=== PATIENT | male | born 1955 | race Caucasian/White ===

== ENCOUNTER 2020-01-17 06:01 | Inpatient (IN) | payer OTHER ==
[2020-01-17] MEDS ORDERED: SODIUM CHLORIDE 0.9% 1,000 ML IV ONE (06:19)
[2020-01-17 06:35] LABS: Basophils % (A) 1 %; Eosinophils # (A) 0.2 k/uL (0-0.7); Eosinophils % (A) 3 %; HCT 51.5 % (39.0-53.0); HGB 16.3 gm/dL (13.0-17.5); Lymphocytes # (A) 2.1 k/uL (1.0-4.8); Lymphocytes % (A) 27 %; MCH 29.2 pg (25.0-35.0); MCHC 31.6 g/dL (31.0-37.0); MCV 92.3 fL (80.0-100.0); Monocytes # (A) 0.6 k/uL (0-1.0); Monocytes % (A) 7 %; Neutrophils # (A) 4.7 k/uL (1.3-7.7); Neutrophils % (A) 60 %; Platelet Count 245 k/uL (150-450); RBC 5.58 m/uL (4.30-5.90); RDW 12.9 % (11.5-15.5); WBC 7.8 k/uL (3.8-10.6)
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
[2020-01-17 06:47] LABS: ALT 23 U/L (4-49); AST 27 U/L (17-59); African American GFR (CKD) 88 (>60 ml/min/1.73 sqM); Albumin 4.6 g/dL (3.5-5.0); Alcohol <10 mg/dL; Alkaline Phosphatase 58 U/L (38-126); Anion Gap 10 mmol/L; Blood Urea Nitrogen 21 mg/dL (9-20); Calcium 9.5 mg/dL (8.4-10.2); Carbon Dioxide 24 mmol/L (22-30); Chloride 104 mmol/L (98-107); Glucose 92 mg/dL (74-99); Non-African American GFR(CKD) 76 (>60 ml/min/1.73 sqM); Sodium 138 mmol/L (137-145); Total Bilirubin 0.7 mg/dL (0.2-1.3); Total Protein 7.5 g/dL (6.3-8.2)
[2020-01-17 06:54] LABS: Appearance,Urine Clear (Clear); Bilirubin,Urine Negative (Negative); Blood,Urine Negative (Negative); Color,Urine Yellow; Glucose,Urine (UA) Negative (Negative); Ketones,Urine Negative (Negative); Leukocyte Esterase,Urine Negative (Negative); Nitrite,Urine Negative (Negative); Protein,Urine Negative (Negative); Specific Gravity,Urine 1.019 (1.001-1.035); Urobilinogen,Urine <2.0 mg/dL (<2.0)
[2020-01-17 06:58] LABS: Prothrombin Time 9.9 sec (9.0-12.0)
--- NOTE | 2020-01-17 06:58 | CT ---
EXAM: CT Head Without Intravenous Contrast CLINICAL HISTORY: Altered mental status TECHNIQUE: Axial computed tomography images of the head/brain without intravenous contrast. CTDI is 50 mGy and DLP is 1099 mGy-cm. This CT exam was performed using one or more of the following dose reduction techniques: automated exposure control, adjustment of the mA and/or kV according to patient size, and/or use of iterative reconstruction technique. COMPARISON: None. FINDINGS: Brain: No acute intracranial hemorrhage. No CT evidence of acute infarct. No mass effect or midline shift. Slight asymmetrical high density in the right middle cerebral artery on the axial images. Chronic microangiopathic white matter disease and generalized involutional changes. Ventricles: Unremarkable. No ventriculomegaly. Bones/joints: Unremarkable. No acute fracture. Soft tissues: Unremarkable. Sinuses: Unremarkable as visualized. Mastoid air cells: Unremarkable as visualized. No mastoid effusion. IMPRESSION: No acute intracranial hemorrhage or CT evidence of acute infarct. Slight asymmetrical high density in the right MCA on axial images, may represent sequela of atherosclerotic disease and motion artifact. Correlate with clinical findings. Correlate with clinical findings such as dense left hemiparesis to exclude less likely possibility of thrombus. Age-related changes. <MYCVCSECTION> Communications: 01/17/20 06:59 Call Doctor Regarding Above results, called Dr. Griffith on 01/16 07:00 (-04:00)
[2020-01-17 07:06] LABS: Amphetamine Screen,Urine Not Detected (NotDetected); Barbiturate Screen,Urine Not Detected (NotDetected); Benzodiazepines Screen,Urine Detected (NotDetected); Cocaine Screen,Urine Not Detected (NotDetected); Methadone Screen, Urine Not Detected (NotDetected); Opiate Screen,Urine Detected (NotDetected); Oxycodone Screen, Urine Not Detected (NotDetected); Phencyclidine Screen,Urine Not Detected (NotDetected); Tricyclic Antidepressant,Urine Not Detected (NotDetected); Urn Cannabinoid Scrn Not Detected (NotDetected)
[2020-01-17] MEDS ORDERED: RX INFO: IV CONTRAST WAS GIVEN 1 EACH MISC MISCELLANE PRN (07:47)
--- NOTE | 2020-01-17 08:53 | CT ---
EXAMINATION TYPE: CT brain w con DATE OF EXAM: 01/17/2020 COMPARISON: Previous study dated 01/17/2020 HISTORY: Confusion CT DLP: 1154.4 mGycm Automated exposure control for dose reduction was used. CONTRAST: CT scan of the head is performed with IV Contrast, patient injected with 100 ml mL of Isovue 300. FINDINGS: Central structures are midline. There is no evidence of hydrocephalus. No acute focal lesion, mass ef fect or midline shift is seen. I do not see evidence of intracranial blood. There is symmetric blood flow to both cerebral hemispheres. There is normal arborization of the middl e cerebral arteries. Both anterior cerebral arteries are patent. The posterior circulation appears un remarkable. IMPRESSION: 1. NO EVIDENCE OF THROMBUS OR OCCLUSION OF THE RIGHT MCA AT THIS TIME. 2. NO ACUTE INTRACRANIAL ABNORMALITY.
[2020-01-17] MEDS ORDERED: NALOXONE 0.4 MG/ML 1 ML VIAL IV PRN (10:01)
[2020-01-17 12:07] LABS: Glucose,Whole Blood 72 mg/dL (75-99)
[2020-01-17] MEDS ORDERED: LORazepam 0.5 MG TAB PO PRN (15:59)
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
[2020-01-17] MEDS: THIAMINE 100 MG in SODIUM CHLORIDE 0.9% 50 ML IVPB SCH ×2 (16:57→19:54)
[2020-01-17 17:05] LABS: Glucose,Whole Blood 111 mg/dL (75-99)
[2020-01-17] MEDS: FAMOTIDINE 20 MG/2 ML VIAL IV SCH (19:54)
[2020-01-17] MEDS: HEPARIN SODIUM,PORCINE 5,000 UNIT/ML 1 ML VIAL SQ SCH (19:54)
[2020-01-17 21:53] LABS: Glucose,Whole Blood 88 mg/dL (75-99)
[2020-01-18 07:15] LABS: Glucose,Whole Blood 100 mg/dL (75-99)
[2020-01-18] MEDS: HEPARIN SODIUM,PORCINE 5,000 UNIT/ML 1 ML VIAL SQ SCH ×2 (08:27→21:48)
[2020-01-18] MEDS: FAMOTIDINE 20 MG/2 ML VIAL IV SCH ×2 (08:27→21:50)
[2020-01-18] MEDS: THIAMINE 100 MG in SODIUM CHLORIDE 0.9% 50 ML IVPB SCH ×2 (08:29→21:48)
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
--- NOTE | 2020-01-18 11:00 | ECHOF ---
Referral Reason:Periods of unresponsiveness MEASUREMENTS -------- HEIGHT: 170.2 cm WEIGHT: 87.1 kg BP: 175/90 RVIDd: 3.7 cm (< 3.3) IVSd: 1.6 cm (0.6 - 1.1) LVIDd: 3.8 cm (3.9 - 5.3) LVPWd: 1.4 cm (0.6 - 1.1) IVSs: 1.6 cm LVIDs: 3.4 cm LVPWs: 1.7 cm LA Diam: 3.6 cm (2.7 - 3.8) LAESV Index (A-L): 26.26 ml/m Ao Diam: 4.0 cm (2.0 - 3.7) AV Cusp: 2.3 cm (1.5 - 2.6) MV EXCURSION: 10.270 mm (> 18.000) MV EF SLOPE: 30 mm/s (70 - 150) EPSS: 0.7 cm MV E Denis: 0.69 m/s MV DecT: 148 ms MV A Denis: 0.90 m/s MV E/A Ratio: 0.77 RAP: 5.00 mmHg RVSP: 23.47 mmHg FINDINGS -------- Sinus rhythm. This was a technically good study. The left ventricular size is normal. There is moderate concentric left ventricular hypertrophy. O verall left ventricular systolic function is normal with, an EF between 60 - 65 %. The right ventricle is mildly enlarged. Normal LA size by volume 22+/-6 ml/m2. The right atrium is normal in size. Interatrial and interventricular septum intact. Aortic valve is trileaflet and is mildly thickened. Mild mitral annular calcification present. There is trace to mild mitral regurgitation. Mild tricuspid regurgitation present. Right ventricular systolic pressure is normal at < 35 mmHg. Trace/mild (physiologic) pulmonic regurgitation. The aortic root is dilated measuring 4.0cm. Normal inferior vena cava with normal inspiratory collapse consistent with estimated right atrial pre ssure of 5 mmHg. There is no pericardial effusion. CONCLUSIONS -------- 1. Sinus rhythm. 2. This was a technically good study. 3. The left ventricular size is normal. 4. There is moderate concentric left ventricular hypertrophy. 5. Overall left ventricular systolic function is normal with, an EF between 60 - 65 %. 6. The right ventricle is mildly enlarged. 7. Normal LA size by volume 22+/-6 ml/m2. 8. The right atrium is normal in size. 9. Interatrial and interventricular septum intact. 10. Aortic valve is trileaflet and is mildly thickened. 11. Mild mitral annular calcification present. 12. There is trace to mild mitral regurgitation. 13. Mild tricuspid regurgitation present. 14. Right ventricular systolic pressure is normal at < 35 mmHg. 15. Trace/mild (physiologic) pulmonic regurgitation. 16. The aortic root is dilated measuring 4.0cm. 17. Normal inferior vena cava with normal inspiratory collapse consistent with estimated right atrial pressure of 5 mmHg. 18. There is no pericardial effusion. [employer]: ANYA Stanton
[2020-01-18 11:49] LABS: Glucose,Whole Blood 122 mg/dL (75-99)
--- NOTE | 2020-01-18 16:51 | US ---
EXAMINATION TYPE: US carotid duplex BILAT DATE OF EXAM: 01/18/2020 COMPARISON: NONE CLINICAL HISTORY: found with AMS. Memory changes and confusion. EXAM MEASUREMENTS: RIGHT: Peak Systolic Velocity (PSV) cm/sec ----- Right CCA: 85.3 ----- Right ICA: 71.3 ----- Right ECA: 77.4 ICA/CCA ratio: 0.8 RIGHT: End Diastole cm/sec ----- Right CCA: 25.9 ----- Right ICA: 25.9 ----- Right ECA: 16.2 LEFT: Peak Systolic Velocity (PSV) cm/sec ----- Left CCA: 93.4 ----- Left ICA: 83.6 ----- Left ECA: 85.6 ICA/CCA ratio: 0.9 LEFT: End Diastole cm/sec ----- Left CCA: 25.9 ----- Left ICA: 34.4 ----- Left ECA: 10.9 VERTEBRALS (direction of flow): Right Vertebral: Antegrade Left Vertebral: Antegrade Rhythm: Normal Alcocer scale images show focal mild to moderate eccentric hypoechoic plaque bilateral carotid bulbs but velocity measurements and ratios remain within normal limits and visualized portion of both internal carotid arteries. IMPRESSION: No hemodynamically significant stenosis in either internal carotid artery. Criteria for Assigning % of Stenosis / Diameter reduction (Estimation based on the indirect measurements of the internal carotid artery velocities (ICA PSV). 1. Normal (no stenosis)=ICA PSV < 125 cm/s: ratio < 2.0: ICA EDV<40 cm/s. 2. Less than 50% stenosis=ICA PSV < 125 cm/s: ratio < 2.0: ICA EDV<40 cm/s. 3. 50 to 69% stenosis=ICA PSV of 125 to 230 cm/s: ration 2.0 ? 4.0: ICA EDV 40-100 cm/s. 4. Greater than 70% stenosis to near occlusion= ICA PSV > 230 cm/s: ratio > 4.0: ICA EDV > 100 cm/s. 5. Near occlusion= ICA PSV velocities may be low or undetectable: variable ratio and ICA EDV. 6. Total occlusion=unable to detect flow.
[2020-01-18 17:39] LABS: Glucose,Whole Blood 100 mg/dL (75-99)
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
[2020-01-18 19:48] LABS: Glucose,Whole Blood 118 mg/dL (75-99)
[2020-01-19 06:54] LABS: Glucose,Whole Blood 98 mg/dL (75-99)
[2020-01-19] MEDS ORDERED: ACETAMINOPHEN TAB 325 MG TAB PO PRN (07:25)
[2020-01-19] MEDS: amLODIPine 5 MG TAB PO SCH (07:38)
[2020-01-19] MEDS: FAMOTIDINE 20 MG/2 ML VIAL IV SCH (07:38)
[2020-01-19] MEDS: HEPARIN SODIUM,PORCINE 5,000 UNIT/ML 1 ML VIAL SQ SCH ×2 (07:38→20:29)
--- NOTE | 2020-01-19 10:15 | MR ---
EXAMINATION TYPE: MR angio head/neck wo con DATE OF EXAM: 01/19/2020 HISTORY: Acute mental status changes right sided headaches COMPARISON: CT brain 01/17/2020 TECHNIQUE: MRA of the neck is performed on a 1.5 Janna magnet. 3-D [id number] imaging is performe d. FINDINGS: Carotid/Vascular Structures: There is a three-vessel arch. The right vertebral artery is dominant. No suspicious flow gap within the carotid artery bifurcations is evident. Cervical of Wiley: Vertebral basilar system appears normal. Posterior cerebral vasculature is unrema rkable. Internal carotid arteries bifurcate normally into A1 and M1 segments. A2 segments are normal. The anterior communicating artery is patent. Left Posterior communicating artery is absent. Right po sterior communicating artery is patent. IMPRESSION: 1. No flow-limiting stenosis bilateral carotid bifurcations. 2. Normal unga of Wiley
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
[2020-01-19] MEDS: THIAMINE 100 MG in SODIUM CHLORIDE 0.9% 50 ML IVPB SCH ×2 (11:12→20:29)
[2020-01-19 11:35] LABS: Glucose,Whole Blood 97 mg/dL (75-99)
--- NOTE | 2020-01-19 12:33 | EEG ---
ELECTROENCEPHALOGRAM REPORT DATE OF SERVICE: 01/19/2020. HISTORY: This is an inpatient EEG performed on a 64-year-old gentleman who presented with a prolonged period of amnesia with a urine drug screen positive for benzos and opiates. The patient has known history for alcohol usage, but was negative on the urine drug screen for alcohol. An alcohol blood level was negative. TECHNICAL REPORT: This is an inpatient EEG performed on the [employer] EEG monitor with electrodes placed according to the International 10-20 system and a single EKG channel. Simultaneous video EEG monitoring was performed. This EEG was reviewed in both longitudinal bipolar, common average referential and transverse montages. Photic stimulation was performed. Hyperventilation was not performed. Study begins with the patient awake with a [id number] amplitude 10 maximal 11 hertz posterior dominant rhythm that attenuates with eye opening. Low amplitude beta activity is prominent over the anterior and central head regions. Frequent eye blinking is noted. Intermittent muscle and movement artifacts particularly from jaw movement is present. Photic stimulation was performed at various flash frequencies and failed to elicit a consistent driving response. Deeper stages of sleep were not achieved. IMPRESSION: This is a normal wake only EEG study. The wake background is normal for this patient's stated age. No epileptiform discharges, focal or hemispheric slowing was noted. CLINICAL CORRELATION: Awake only EEG does not preclude an underlying seizure tendency thus further clinical correlation is required. If clinically indicated, serial EEGs at our more prolonged overnight ambulatory EEG could provide additional information. MMODL / IJN: [id number] / MTDD
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
[2020-01-19] MEDS: CYANOCOBALAMIN 500 MCG TAB PO SCH (13:26)
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
[2020-01-19 17:16] LABS: Glucose,Whole Blood 116 mg/dL (75-99)
[2020-01-19] MEDS: SERTRALINE 50 MG TAB PO SCH (18:15)
[2020-01-19 20:16] LABS: Glucose,Whole Blood 109 mg/dL (75-99)
[2020-01-19] MEDS: FAMOTIDINE 20 MG TAB PO SCH (20:29)
[2020-01-19] MEDS ORDERED: ATORVASTATIN 10 MG TAB PO SCH (21:00)
[2020-01-19] MEDS ORDERED: traZODone HCL 50 MG TAB PO SCH (21:00)
[2020-01-19 21:24] VITALS: RESP 16
[2020-01-20 07:12] LABS: Glucose,Whole Blood 104 mg/dL (75-99)
[2020-01-20] MEDS: CYANOCOBALAMIN 500 MCG TAB PO SCH (09:20)
[2020-01-20] MEDS: HEPARIN SODIUM,PORCINE 5,000 UNIT/ML 1 ML VIAL SQ SCH (09:20)
[2020-01-20] MEDS: amLODIPine 5 MG TAB PO SCH (09:20)
[2020-01-20] MEDS: SERTRALINE 50 MG TAB PO SCH (09:20)
[2020-01-20] MEDS: THIAMINE 100 MG in SODIUM CHLORIDE 0.9% 50 ML IVPB SCH (09:20)
[2020-01-20] MEDS: FAMOTIDINE 20 MG TAB PO SCH (09:20)
--- NOTE | 2020-01-20 10:07 | P.PN ---
Subjective Progress Note Date: 01/19/20 Principal diagnosis: Transient global amnesia Subjective: This is a late note entry for 01/19/2020. Patient has remained hemodynamically stable. No further episodes of altered mental status. Patient reports still having a slight headache over the midline vertex on the pain scale at 2-3. He denies having any change in vision difficulty swallowing or hearing. He reports no difficulty with ambulating. No difficulty swallowing liquids or solids. Patient expresses interest in going home and also appreciation of seeing psychiatrist. Objective - Vital Signs Vital signs: Vital Signs Temp 97.3 F L 01/20/20 04:59 Pulse 73 01/20/20 04:59 Resp 16 01/20/20 04:59 BP 123/78 01/20/20 04:59 Pulse Ox 96 01/20/20 04:59 Intake & Output 01/19/20 01/20/20 01/20/20 18:59 06:59 18:59 Intake Total 530 640 Balance 530 640 Intake: Intake, IV Titration 50 50 Amount Thiamine 100 mg In Sodium 50 50 Chloride 0.9% 50 ml @ 100 mls/hr IVPB Q12HR [facility] Rx#:[id number] Oral 480 590 Other: Voiding Method Toilet # Voids 2 - Exam Patient examined chart reviewed. Review of the MRI of the brain and MRA of the head and neck did not show any evidence of pathology. These results were discussed with the patient in detail. Mental status: Patient awake alert oriented times place person. Speech is fluent. Affect appropriate. Cranial nerve examination: Extraocular movements are full no nystagmus noted on vertical horizontal gaze. Face appears symmetric. Shoulder shrug symmetric. Tongue midline without fasciculations deviation. Motor examination: Moves all 4 extremities equally. Strength appears 5 out of 5 throughout with pronator drift negative. Coordination testing: Intact finger to nose testing. This was a brief neurological exam. Focus was primarily on discussing the res ults of his studies and long-term follow-up management. - Labs CBC & Chem 7: 01/17/20 06:16 01/17/20 06:16 Labs: Abnormal Lab Results - Last 24 Hours (Table) 01/19/20 01/19/20 01/20/20 Range/Units 17:14 20:15 07:11 POC Glucose (mg/dL) 116 H 109 H 104 H (75-99) mg/dL Assessment and Plan Assessment: This is a 64-year-old gentleman who presented with a amnestic episode that was preceded by taking alcohol mixing with hydrocodone and a benzo. This patient does have an underlying substance abuse problem which is deeply rooted in depression and prolonged mourning for his . He is very motivated to alter this behavior and work with a psychiatrist and psychologist to understand these behavioral issues. The patient's neurological exam has remained nonfocal since admission. He was counseled however for stroke risk factors and healthy lifestyle choices. I'm also recommending that this patient be followed by a neurologist over the next 4 weeks. Though he had a normal awake only EEG, this does not preclude an underlying seizure tendency. This patient could benefit from a more prolonged overnight study such as an ambulatory EEG to assure that he is not at risk for having seizures. I'm also recommending to the patient not be driving for a while at least a week or so. Though he did not technically have a seizure there was an altered event that we still do not clearly no 100% the etiology for. He understands that definitely the danger of mixing alcohol with these drugs can increase the risk for respiratory depression and , altered mental status. This patient has been cleared by neurology to be discharged home with the appropriate follow-up to: 1. Psychiatry and psychologist for behavioral therapy 2. Neurology to further evaluate the risk for seizures and monitor this episode. Thank you for this consultation. If there are any further questions or concerns I can be reached at [phone] Stephania Loya M.D. Board Certified in Neurology and Sleep medicine
[2020-01-20 11:29] LABS: Glucose,Whole Blood 83 mg/dL (75-99)
[2020-01-20 11:31] VITALS: BP 131/81; PULSE 77; TEMP 99.3
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
== END 2020-01-20 13:38 | disposition home or self-care (01) | DRG 897 ==
LOC: EC 06:01 → 5NMEDONC 10:04 → OBSVTOIN 01-19 11:25
PROVIDERS: ADMIT Internal Medicine; ATTEND Internal Medicine
DX: F13.10 Sedative, hypnotic or anxiolytic abuse, uncomplicated (principal); G45.4 Transient global amnesia; M32.9 Systemic lupus erythematosus, unspecified; R56.9 Unspecified convulsions; F91.9 Conduct disorder, unspecified; F32.9 Major depressive disorder, single episode, unspecified; F41.9 Anxiety disorder, unspecified; F10.10 Alcohol abuse, uncomplicated; Y90.0 Blood alcohol level of less than 20 mg/100 ml; Z11.59 Encounter for screening for other viral diseases
CPT/HCPCS: 36415; 70450; 70460; 70544; 70547; 70553; 80053; 80061; 80306; 80320; 81003; 82140; 82553; 82607; 82746; 84443; 84484; 85025; 85610; 85730; 87635; 93005; 93306; 93880; 95816; 96360; 99285

== ENCOUNTER 2021-01-22 20:10 | Emergency (ER) | payer OTHER ==
[2021-01-22 20:31] LABS: Glucose,Whole Blood 110 mg/dL (75-99)
--- NOTE | 2021-01-22 20:46 | ED ---
Fall HPI - General Chief Complaint: Fall Stated Complaint: Fall, ETOH Time Seen by Provider: 01/22/21 20:41 Source: EMS Mode of arrival: EMS - History of Present Illness Initial Comments: 65 -year-old male presents to emergency department with a chief complaint of a fall. Patient was found on the ground of his apartment complex and the amylase was contacted. Patient states he had 3-4 beers earlier in the day and he took 4 tablets of Xanax. He could not recall the exact dosage of the medication. Patient states he feels "fine" at the moment. He denies any chest pain or sh ortness of breath at this time. States he lives alone in an apartment and is typically aware of his surroundings. He denies doing any additional illicit substances. Patient states that he is dealing with depression at the moment but is currently seeing a therapist and is on Prozac. States he is working out regularly to help with his depression. - Related Data Home Medications Medication Instructions Recorded Confirmed Ergocalciferol (Vitamin D2) 1,250 mcg PO Q7D 01/22/21 01/22/21 [Drisdol (50,000 Iu)] FLUoxetine HCL [PROzac] 40 mg PO DAILY 01/22/21 01/22/21 OLANZapine [ZyPREXA] 20 mg PO HS 01/22/21 01/22/21 Prazosin HCl 1 mg PO HS 01/22/21 01/22/21 Allergies Allergy/AdvReac Type Severity Reaction Status Date / Time No Known Allergies Allergy Verified 01/22/21 21:16 Review of Systems ROS Statement: Those systems with pertinent positive or pertinent negative responses have been documented in the HPI. ROS Other: All systems not noted in ROS Statement are negative. Past Medical History Past Medical History: No Reported History History of Any Multi-Drug Resistant Organisms: Unobtainable Additional Past Surgical History / Comment(s): vasectomy Past Anesthesia/Blood Transfusion Reactions: No Reported Reaction Past Psychological History: Unable to Obtain Smoking Status: Never smoker Past Alcohol Use History: Occasional Past Drug Use History: Unable to Obtain General Exam Limitations: no limitations General appearance: alert, in no apparent distress Head exam: Present: atraumatic, normocephalic. Absent: normal inspection (Small abrasion noted on the left side of the head with mild swelling near the left zygomatic arch.), other (Negative Baumann sign, raccoon eyes, hemotympanum.) Eye exam: Present: normal appearance, PERRL, EOMI Pupils: Present: normal accommodation ENT exam: Present: normal exam, normal oropharynx (No intraoral cavity injury. No septal hematoma), mucous membranes moist, TM's normal bilaterally, normal external ear exam Neck exam: Present: normal inspection, full ROM. Absent: tenderness, lympha denopathy Respiratory exam: Present: normal lung sounds bilaterally. Absent: respiratory distress, wheezes, rales, rhonchi, stridor, chest wall tenderness, accessory muscle use Cardiovascular Exam: Present: regular rate, normal rhythm, normal heart sounds. Absent: systolic murmur GI/Abdominal exam: Present: soft. Absent: distended, tenderness, guarding, rebound Extremities exam: Present: full ROM, normal capillary refill. Absent: normal inspection (Multiple abrasions noted on bilateral knees. Sitting), tenderness, pedal edema, joint swelling, calf tenderness Back exam: Present: normal inspection, full ROM. Absent: tenderness, CVA tenderness (R), CVA tenderness (L) Neurological exam: Present: alert, oriented X3 Psychiatric exam: Present: normal affect, normal mood Skin exam: Present: warm, dry, intact, normal color Course Vital Signs 01/22/21 01/22/21 20:18 22:40 Temperature 97.2 F L Pulse Rate 86 71 Respiratory 16 16 Rate Blood Pressure 121/78 125/81 O2 Sat by Pulse 97 95 Oximetry Medical Decision Making - Medical Decision Making 65-year-old male presents to emergency department with a chief complaint of a fall. On physical examination, the ohara appears to be slightly intoxicated. He is also slightly slow to respond. I presume this is secondary to taking Xanax. He later revealed that it was 0.5 mg and he took 4 tablets. He also had an abrasion and a contusion to the left side of the face. CT of the brain and C- spine unremarkable. Facial bone CT is also negative for any acute findings. Laboratory work is unremarkable. His blood alcohol is 259. Urine drug screen positive for benzodiazepines and amphetamines. Patient states he can call a cab and feels comfortable going home. He is denying any homicidal, suicidal thoughts or ideations. I did offer him a psychiatric evaluation, he declined. States he is going to follow up with his therapist. Return parameters were thoroughly discussed the patient was standing agreeable. Case discussed with - Lab Data Result diagrams: 01/22/21 21:49 01/22/21 21:49 Lab Results 01/22/21 01/22/21 01/22/21 Range/Units 20:17 21:49 21:49 WBC 9.2 (3.8-10.6) k/uL RBC 5.26 (4.30-5.90) m/uL Hgb 16.2 (13.0-17.5) gm/dL Hct 47.8 (39.0-53.0) % MCV 90.9 (80.0-100.0) fL MCH 30.9 (25.0-35.0) pg MCHC 33.9 (31.0-37.0) g/dL RDW 12.5 (11.5-15.5) % Plt Count 278 (150-450) k/uL MPV 7.4 Neutrophils % 70 % Lymphocytes % 20 % Monocytes % 5 % Eosinophils % 2 % Basophils % 1 % Neutrophils # 6.5 (1.3-7.7) k/uL Lymphocytes # 1.8 (1.0-4.8) k/uL Monocytes # 0.5 (0-1.0) k/uL Eosinophils # 0.2 (0-0.7) k/uL Basophils # 0.1 (0-0.2) k/uL Sodium (137-145) mmol/L Potassium (3.5-5.1) mmol/L Chloride (98-107) mmol/L Carbon Dioxide (22-30) mmol/L Anion Gap mmol/L BUN (9-20) mg/dL Creatinine (0.66-1.25) mg/dL Est GFR (CKD-EPI)AfAm (>60 ml/min/1.73 sqM) Est GFR (CKD-EPI)NonAf (>60 ml/min/1.73 sqM) Glucose (74-99) mg/dL POC Glucose (mg/dL) 110 H (75-99) mg/dL POC Glu Log Preparer ID Kirsten Cardona Calcium (8.4-10.2) mg/dL Total Bilirubin (0.2-1.3) mg/dL AST (17-59) U/L ALT (4-49) U/L Alkaline Phosphatase (38-126) U/L Creatine Kinase (55-170) U/L Total Protein (6.3-8.2) g/dL Albumin (3.5-5.0) g/dL Urine Opiates Screen Not Detected (NotDetected) Ur Oxycodone Screen Not Detected (NotDetected) Urine Methadone Screen Not Detected (NotDetected) Ur Propoxyphene Screen Not Detected (NotDetected) Ur Barbiturates Screen Not Detected (NotDetected) U Tricyclic Antidepress Not Detected (NotDetected) Ur Phencyclidine Scrn Not Detected (NotDetected) Ur Amphetamines Screen Detected H (NotDetected) U Methamphetamines Scrn Not Detected (NotDetected) U Benzodiazepines Scrn Detected H (NotDetected) Urine Cocaine Screen Not Detected (NotDetected) U Marijuana (THC) Screen Not Detected (NotDetected) Serum Alcohol mg/dL 01/22/21 Range/Units 21:49 WBC (3.8-10.6) k/uL RBC (4.30-5.90) m/uL Hgb (13.0-17.5) gm/dL Hct (39.0-53.0) % MCV (80.0-100.0) fL MCH (25.0-35.0) pg MCHC (31.0-37.0) g/dL RDW (11.5-15.5) % Plt Count (150-450) k/uL MPV Neutrophils % % Lymphocytes % % Monocytes % % Eosinophils % % Basophils % % Neutrophils # (1.3-7.7) k/uL Lymphocytes # (1.0-4.8) k/uL Monocytes # (0-1.0) k/uL Eosinophils # (0-0.7) k/uL Basophils # (0-0.2) k/uL Sodium 139 (137-145) mmol/L Potassium 4.5 (3.5-5.1) mmol/L Chloride 101 (98-107) mmol/L Carbon Dioxide 23 (22-30) mmol/L Anion Gap 15 mmol/L BUN 14 (9-20) mg/dL Creatinine 1.12 (0.66-1.25) mg/dL Est GFR (CKD-EPI)AfAm 80 (>60 ml/min/1.73 sqM) Est GFR (CKD-EPI)NonAf 69 (>60 ml/min/1.73 sqM) Glucose 102 H (74-99) mg/dL POC Glucose (mg/dL) (75-99) mg/dL POC Glu Log Preparer ID Calcium 9.3 (8.4-10.2) mg/dL Total Bilirubin 0.4 (0.2-1.3) mg/dL AST 33 (17-59) U/L ALT 23 (4-49) U/L Alkaline Phosphatase 70 (38-126) U/L Creatine Kinase 76 (55-170) U/L Total Protein 7.2 (6.3-8.2) g/dL Albumin 4.7 (3.5-5.0) g/dL Urine Opiates Screen (NotDetected) Ur Oxycodone Screen (NotDetected) Urine Methadone Screen (NotDetected) Ur Propoxyphene Screen (NotDetected) Ur Barbiturates Screen (NotDetected) U Tricyclic Antidepress (NotDetected) Ur Phencyclidine Scrn (NotDetected) Ur Amphetamines Screen (NotDetected) U Methamphetamines Scrn (NotDetected) U Benzodiazepines Scrn (NotDetected) Urine Cocaine Screen (NotDetected) U Marijuana (THC) Screen (NotDetected) Serum Alcohol 259 H* mg/dL Disposition Clinical Impression: Fall, Facial contusion, Alcohol intoxication Disposition: HOME SELF-CARE Condition: Stable Instructions (If sedation given, give patient instructions): Fall Prevention (ED) Additional Instructions: Please return to the Emergency Department if symptoms worsen or any other concerns. Is patient prescribed a controlled substance at d/c from ED?: No Referrals: None,Stated [Primary Care Provider] - 1-2 days Time of Disposition: 23:05
[2021-01-22] MEDS ORDERED: SODIUM CHLORIDE 0.9% 1,000 ML IV STA (20:54)
[2021-01-22 21:56] LABS: Basophils # (A) 0.1 k/uL (0-0.2); Basophils % (A) 1 %; Eosinophils # (A) 0.2 k/uL (0-0.7); Eosinophils % (A) 2 %; HCT 47.8 % (39.0-53.0); HGB 16.2 gm/dL (13.0-17.5); Lymphocytes # (A) 1.8 k/uL (1.0-4.8); Lymphocytes % (A) 20 %; MCH 30.9 pg (25.0-35.0); MCHC 33.9 g/dL (31.0-37.0); MCV 90.9 fL (80.0-100.0); Mean Platelet Volume 7.4; Monocytes # (A) 0.5 k/uL (0-1.0); Monocytes % (A) 5 %; Neutrophils # (A) 6.5 k/uL (1.3-7.7); Neutrophils % (A) 70 %; Platelet Count 278 k/uL (150-450); RBC 5.26 m/uL (4.30-5.90); RDW 12.5 % (11.5-15.5); WBC 9.2 k/uL (3.8-10.6)
[2021-01-22 22:06] LABS: Albumin 4.7 g/dL (3.5-5.0); Calcium 9.3 mg/dL (8.4-10.2); Potassium 4.5 mmol/L (3.5-5.1); Total Bilirubin 0.4 mg/dL (0.2-1.3); Total Protein 7.2 g/dL (6.3-8.2)
--- NOTE | 2021-01-22 22:12 | XR ---
EXAMINATION TYPE: XR chest 2V DATE OF EXAM: 01/22/2021 COMPARISON: NONE HISTORY: Fall. Pain. TECHNIQUE: FINDINGS: Heart and mediastinum are normal. Lungs are clear. Diaphragm is normal. Bony thorax is inta ct. There is no compression fracture. There is no pneumothorax. IMPRESSION: No active cardiopulmonary disease.
--- NOTE | 2021-01-22 22:38 | CT ---
EXAMINATION TYPE: CT brain cspine wo con DATE OF EXAM: 01/22/2021 COMPARISON: CT brain 01/17/2020 HISTORY: fall CT DLP: combined DLP 1188 mGycm Automated exposure control for dose reduction was used. There is mild cerebral atrophy. There is no mass effect nor midline shift. There is no evidence of in tracranial hemorrhage. There is calcification in the cerebral falx. Skull base is intact. There is no rmal aeration of the mastoid sinuses. Occipital bone is intact. Cervical vertebra have normal alignment. There is mild spurring of the endplates at C5-6. Facet joint s are intact. There is mild hypertrophic facet arthropathy. IMPRESSION: Minor spondylotic changes in the cervical spine. No fracture. No acute abnormality of the brain. No change compared to old exam.
--- NOTE | 2021-01-22 22:40 | CT ---
EXAMINATION TYPE: CT facial bones wo con DATE OF EXAM: 01/22/2021 COMPARISON: None HISTORY: fall CT DLP: combined DLP 1188 mGycm Automated exposure control for dose reduction was used. The mandibular ring appears intact. Zygomatic arches appear intact. There is fairly normal aeration o f the paranasal sinuses. Orbital margins are intact. Maxilla is intact. There is no retro-orbital mas s. There is no evidence of orbital blowout fracture. The globes are symmetric. The nasal bone appears intact. IMPRESSION: Negative CT scan of the facial bones. No fracture seen.
[2021-01-22 22:49] LABS: Amphetamine Screen,Urine Detected (NotDetected); Benzodiazepines Screen,Urine Detected (NotDetected); Cocaine Screen,Urine Not Detected (NotDetected); Opiate Screen,Urine Not Detected (NotDetected); Phencyclidine Screen,Urine Not Detected (NotDetected); Urn Cannabinoid Scrn Not Detected (NotDetected)
[2021-01-22 22:50] LABS: Barbiturate Screen,Urine Not Detected (NotDetected); Methadone Screen, Urine Not Detected (NotDetected); Oxycodone Screen, Urine Not Detected (NotDetected); Tricyclic Antidepressant,Urine Not Detected (NotDetected)
[2021-01-22 23:26] VITALS: BP 119/83; PULSE 96; RESP 18; TEMP 98
== END 2021-01-22 23:24 | disposition home or self-care (01) ==
LOC: EC 20:10
DX: F10.129 Alcohol abuse with intoxication, unspecified (principal); S00.83XA Contusion of other part of head, initial encounter; S80.212A Abrasion, left knee, initial encounter; S80.211A Abrasion, right knee, initial encounter; F32.9 Major depressive disorder, single episode, unspecified; W18.30XA Fall on same level, unspecified, initial encounter; Y90.8 Blood alcohol level of 240 mg/100 ml or more
CPT/HCPCS: 99285 ×2; 96360 ×2; 36415; 80053; 82550; 85025; 80306; 71046; 72125; 70486; 70450; G0480; 80320

== ENCOUNTER 2021-08-14 16:30 | Observation (INO) | payer MEDICARE, OTHER ==
--- NOTE | 2021-08-14 17:17 | ED ---
Psych HPI - General Stated Complaint: ETOH, suicidal Time Seen by Provider: 08/14/21 16:48 Source: patient, EMS Mode of arrival: EMS - History of Present Illness Initial Comments: Bryson is a 66yo M since the emergency department today via ambulance for psychiatric evaluation. Per EMS the patient's 6 years ago he's had a hard time since then, patient reports he's recently on for another breakup. Been drinking. He states he's been having persistent thoughts of ending his life. States that he would end his life using a gun. - Related Data Home Medications Medication Instructions Recorded Confirmed ALPRAZolam [Xanax] 1 mg PO TID PRN 08/14/21 08/14/21 Cholecalciferol (Vitamin D3) 125 mcg PO DAILY 08/14/21 08/14/21 [Vitamin D3 (125 MCG = 5,000 IU)] Multivitamins, Thera [Multivitamin 1 tab PO DAILY 08/14/21 08/14/21 (formulary)] buPROPion HCL [buPROPion HCL SR] 150 mg PO BID 08/14/21 08/14/21 Allergies Allergy/AdvReac Type Severity Reaction Status Date / Time No Known Allergies Allergy Verified 08/14/21 18:28 Review of Systems ROS Statement: Those systems with pertinent positive or pertinent negative responses have been documented in the HPI. ROS Other: All systems not noted in ROS Statement are negative. Past Medical History Past Medical History: No Reported History History of Any Multi-Drug Resistant Organisms: Unobtainable Additional Past Surgical History / Comment(s): vasectomy Past Anesthesia/Blood Transfusion Reactions: No Reported Reaction Past Psychological History: Anxiety, Depression Smoking Status: Never smoker Past Alcohol Use History: Occasional Past Drug Use History: Unable to Obtain General Exam - General Exam Comments Initial Comments: Physical Exam GENERAL: Patient is well-developed and well-nourished. Patient is nontoxic and well-hydrated and is in no distress. HENT: Normocephalic, Atraumatic. EYES: PERRL, EOMI PULMONARY: Unlabored respirations. CARDIOVASCULAR: RRR Warm and well perfused extremities ABDOMEN: Non-distended SKIN: No rashes or bruising : Deferred NEUROLOGIC: Alert and oriented Normal speech Normal gait MUSCULOSKELETAL: Moving all extremities with no apparent injury PSYCHIATRIC: Pressed, suicidal with plan Limitations: no limitations Course Vital Signs 08/14/21 16:57 Temperature 97.3 F L Pulse Rate 97 Respiratory 16 Rate Blood Pressure 152/114 O2 Sat by Pulse 97 Oximetry Medical Decision Making - Medical Decision Making Patient seen and evaluated, history is obtained from patient, 66-year-old male, , history of alcohol abuse, suicidal thoughts with plan to shoot himself. Patient very high risk for completing suicide. Patient currently intoxicated he will be admitted for alcohol intoxication pending sobriety with consult to psychiatry. [facility]. - Lab Data Result diagrams: 08/14/21 17:35 08/14/21 17:35 Lab Results 08/14/21 08/14/21 08/14/21 Range/Units 17:35 17:35 17:35 WBC 10.4 (3.8-10.6) k/uL RBC 5.02 (4.30-5.90) m/uL Hgb 15.9 (13.0-17.5) gm/dL Hct 48.2 (39.0-53.0) % MCV 95.9 (80.0-100.0) fL MCH 31.6 (25.0-35.0) pg MCHC 33.0 (31.0-37.0) g/dL RDW 12.6 (11.5-15.5) % Plt Count 223 (150-450) k/uL MPV 7.6 Neutrophils % 71 % Lymphocytes % 19 % Monocytes % 5 % Eosinophils % 3 % Basophils % 1 % Neutrophils # 7.4 (1.3-7.7) k/uL Lymphocytes # 1.9 (1.0-4.8) k/uL Monocytes # 0.5 (0-1.0) k/uL Eosinophils # 0.3 (0-0.7) k/uL Basophils # 0.1 (0-0.2) k/uL Sodium 141 (137-145) mmol/L Potassium 4.3 (3.5-5.1) mmol/L Chloride 105 (98-107) mmol/L Carbon Dioxide 22 (22-30) mmol/L Anion Gap 14 mmol/L BUN 21 H (9-20) mg/dL Creatinine 1.29 H (0.66-1.25) mg/dL Est GFR (CKD-EPI)AfAm 67 (>60 ml/min/1.73 sqM) Est GFR (CKD-EPI)NonAf 58 (>60 ml/min/1.73 sqM) Glucose 97 (74-99) mg/dL Calcium 9.1 (8.4-10.2) mg/dL Total Bilirubin 0.2 (0.2-1.3) mg/dL AST 32 (17-59) U/L ALT 38 (4-49) U/L Alkaline Phosphatase 72 (38-126) U/L Total Protein 6.9 (6.3-8.2) g/dL Albumin 4.2 (3.5-5.0) g/dL Salicylates <1.0 mg/dL Urine Opiates Screen (NotDetected) Ur Oxycodone Screen (NotDetected) Urine Methadone Screen (NotDetected) Ur Propoxyphene Screen (NotDetected) Acetaminophen <10.0 ug/mL Ur Barbiturates Screen (NotDetected) U Tricyclic Antidepress (NotDetected) Ur Phencyclidine Scrn (NotDetected) Ur Amphetamines Screen (NotDetected) U Methamphetamines Scrn (NotDetected) U Benzodiazepines Scrn (NotDetected) Urine Cocaine Screen (NotDetected) U Marijuana (THC) Screen (NotDetected) Serum Alcohol 272 H* mg/dL Coronavirus (PCR) Not Detected (Not Detectd) 08/14/21 Range/Units Unknown WBC (3.8-10.6) k/uL RBC (4.30-5.90) m/uL Hgb (13.0-17.5) gm/dL Hct (39.0-53.0) % MCV (80.0-100.0) fL MCH (25.0-35.0) pg MCHC (31.0-37.0) g/dL RDW (11.5-15.5) % Plt Count (150-450) k/uL MPV Neutrophils % % Lymphocytes % % Monocytes % % Eosinophils % % Basophils % % Neutrophils # (1.3-7.7) k/uL Lymphocytes # (1.0-4.8) k/uL Monocytes # (0-1.0) k/uL Eosinophils # (0-0.7) k/uL Basophils # (0-0.2) k/uL Sodium (137-145) mmol/L Potassium (3.5-5.1) mmol/L Chloride (98-107) mmol/L Carbon Dioxide (22-30) mmol/L Anion Gap mmol/L BUN (9-20) mg/dL Creatinine (0.66-1.25) mg/dL Est GFR (CKD-EPI)AfAm (>60 ml/min/1.73 sqM) Est GFR (CKD-EPI)NonAf (>60 ml/min/1.73 sqM) Glucose (74-99) mg/dL Calcium (8.4-10.2) mg/dL Total Bilirubin (0.2-1.3) mg/dL AST (17-59) U/L ALT (4-49) U/L Alkaline Phosphatase (38-126) U/L Total Protein (6.3-8.2) g/dL Albumin (3.5-5.0) g/dL Salicylates mg/dL Urine Opiates Screen Not Detected (NotDetected) Ur Oxycodone Screen Not Detected (NotDetected) Urine Methadone Screen Not Detected (NotDetected) Ur Propoxyphene Screen Not Detected (NotDetected) Acetaminophen ug/mL Ur Barbiturates Screen Not Detected (NotDetected) U Tricyclic Antidepress Not Detected (NotDetected) Ur Phencyclidine Scrn Not Detected (NotDetected) Ur Amphetamines Screen Not Detected (NotDetected) U Methamphetamines Scrn Not Detected (NotDetected) U Benzodiazepines Scrn Detected H (NotDetected) Urine Cocaine Screen Not Detected (NotDetected) U Marijuana (THC) Screen Not Detected (NotDetected) Serum Alcohol mg/dL Coronavirus (PCR) (Not Detectd) Disposition Clinical Impression: Alcohol intoxication, Suicidal ideations Disposition: ADMITTED IP TO THIS HOSP Condition: Serious Is patient prescribed a controlled substance at d/c from ED?: No Referrals: Vazquez See MD [Primary Care Provider] - 1-2 days
[2021-08-14 17:42] LABS: Basophils # (A) 0.1 k/uL (0-0.2); Basophils % (A) 1 %; Eosinophils # (A) 0.3 k/uL (0-0.7); Eosinophils % (A) 3 %; HCT 48.2 % (39.0-53.0); HGB 15.9 gm/dL (13.0-17.5); Lymphocytes # (A) 1.9 k/uL (1.0-4.8); Lymphocytes % (A) 19 %; MCH 31.6 pg (25.0-35.0); MCV 95.9 fL (80.0-100.0); Mean Platelet Volume 7.6; Monocytes # (A) 0.5 k/uL (0-1.0); Monocytes % (A) 5 %; Neutrophils # (A) 7.4 k/uL (1.3-7.7); Neutrophils % (A) 71 %; Platelet Count 223 k/uL (150-450); RBC 5.02 m/uL (4.30-5.90); RDW 12.6 % (11.5-15.5); WBC 10.4 k/uL (3.8-10.6)
[2021-08-14 17:56] LABS: ALT 38 U/L (4-49); AST 32 U/L (17-59); Acetaminophen <10.0 ug/mL; African American GFR (CKD) 67 (>60 ml/min/1.73 sqM); Albumin 4.2 g/dL (3.5-5.0); Alkaline Phosphatase 72 U/L (38-126); Anion Gap 14 mmol/L; Blood Urea Nitrogen 21 mg/dL (9-20); Calcium 9.1 mg/dL (8.4-10.2); Carbon Dioxide 22 mmol/L (22-30); Chloride 105 mmol/L (98-107); Glucose 97 mg/dL (74-99); Non-African American GFR(CKD) 58 (>60 ml/min/1.73 sqM); Potassium 4.3 mmol/L (3.5-5.1); Salicylate <1.0 mg/dL; Sodium 141 mmol/L (137-145); Total Bilirubin 0.2 mg/dL (0.2-1.3); Total Protein 6.9 g/dL (6.3-8.2)
[2021-08-14 18:11] LABS: Alcohol 272 mg/dL
[2021-08-14 18:35] LABS: Amphetamine Screen,Urine Not Detected (NotDetected); Barbiturate Screen,Urine Not Detected (NotDetected); Benzodiazepines Screen,Urine Detected (NotDetected); Cocaine Screen,Urine Not Detected (NotDetected); Methadone Screen, Urine Not Detected (NotDetected); Opiate Screen,Urine Not Detected (NotDetected); Oxycodone Screen, Urine Not Detected (NotDetected); Phencyclidine Screen,Urine Not Detected (NotDetected); Tricyclic Antidepressant,Urine Not Detected (NotDetected); Urn Cannabinoid Scrn Not Detected (NotDetected)
[2021-08-14] MEDS ORDERED: NALOXONE 0.4 MG/ML 1 ML VIAL IV PRN (22:11)
[2021-08-15 11:53] VITALS: RESP 18; TEMP 98.2
[2021-08-15 16:00] VITALS: BP 137/93; PULSE 92
--- NOTE | 2021-08-16 11:05 | HP ---
HISTORY AND PHYSICAL CHIEF COMPLAINT: Acute alcohol intoxication, depression and suicidal thoughts. HISTORY OF PRESENT ILLNESS: This is the first known admission to this hospital for this gentleman on my service. He came into the emergency room intoxicated and was talking about suicide. REVIEW OF SYSTEMS: He is a little bit more awake and alert now. Denies headaches, neurologic problems, diplopia, chest pain, shortness of breath, abdominal pain, nausea, vomiting, diarrhea, melena, hematochezia, jaundice, dysuria, frequency, urgency, incontinence, etc. Past medical history, family history, and personal and social histories are otherwise unremarkable and noncontributory. He is on Wellbutrin 150 mg twice a day, Xanax 1 mg t.i.d. p.r.n., and vitamin D3. He is NOT ALLERGIC TO ANY MEDICATION. He has never smoked. He is not known to be a chronic alcoholic. PHYSICAL EXAMINATION: Blood pressure is 152/114. Pulse was 106, respirations were 25, and he is afebrile. In general he appeared to be well developed, well nourished, in no acute distress. Skin color is normal. There is no jaundice. Lymph nodes are not enlarged. Head, ears, eyes, nose, mouth and throat were normal. Neck veins were not distended. Thyroid is not enlarged. The chest is clear. Cardiac exam demonstrates normal sinus rhythm and no murmurs or extra sounds. The abdomen is soft and slightly protuberant. There are no masses or visceromegaly. There is no tenderness. Bowel sounds are present. Extremities are normal. Neurologically he is intact. He is not in DTs. IMPRESSION: 1. Acute alcohol intoxication. 2. Major depression. 3. Suicidal thoughts. 4. Hypertension. PLAN: 1. Bedrest. 2. IV fluids. 3. Control hypertension. 4. Watch for DTs. 5. Psych consult. MMODL / IJN: [id number] /
--- NOTE | 2021-08-16 20:32 | DS ---
DISCHARGE SUMMARY DATE OF SERVICE: 08/15/2021 CHIEF COMPLAINT: Acute alcohol intoxication, hypertension, major depression and suicidal thoughts. HISTORY OF PRESENT ILLNESS AND PHYSICAL EXAMINATION: Details of this man's history and physical can be found in the initial workup. LABORATORY STUDIES: While he was in the hospital he had laboratory studies, details of which can be found in the laboratory section of his chart. COURSE IN THE HOSPITAL: After admission, he was placed on bedrest and started on intravenous fluids. His blood pressure slowly started to come down as he became more awake and alert. He was seen by Psychiatry and it was felt not to be a risk for suicide. Arrangements were then made for him to be discharged based on psychiatry recommendations. He will go home on his usual activity, diet, medication and be seen in the office in a day or 2. FINAL DIAGNOSES: 1. Acute alcohol intoxication. 2. Major depression. 3. Suicidal personality. OPERATIONS: None. CONSULTATION: Psychiatry. He is improved. MMCHANTEL / PAPA: [id number] /
== END 2021-08-15 17:24 | disposition home or self-care (01) ==
LOC: EC 16:30 → 6NMEDSUR 22:11
PROVIDERS: ADMIT Family Medicine; ATTEND Family Medicine
DX: F10.129 Alcohol abuse with intoxication, unspecified (principal); F32.9 Major depressive disorder, single episode, unspecified; I10 Essential (primary) hypertension; R45.851 Suicidal ideations; Z20.822 Contact with and (suspected) exposure to COVID-19
CPT/HCPCS: 82075; 99285; 36415; 80053; 85025; 80306; 80143; 87635; 80179; G0378 ×2; G0480; 80320

== ENCOUNTER → 2022-06-04 | Outpatient (CLI) | payer MEDICARE, OTHER ==
--- NOTE | 2022-06-06 09:46 | MR ---
EXAMINATION TYPE: MR Prostate wo/w con DATE OF EXAM: 06/04/2022 8:51 AM COMPARISON: None. CLINICAL INDICATION:Male, 66 years old with history of biopsy-proven prostate cancer. TECHNIQUE: Multi-planar, multi-sequence imaging of the pelvis is performed prior to and following the uncomplicated administration of bolus intravenous gadolinium. CONTRAST: 10 Gadavist Interpretive Criteria: PI-RADS v2.1 SERUM PSA: 8.3 on 04/17/2022, 12.75 on 02/01/2022 SURGICAL PATHOLOGY: Report 04/30/2022 left lateral mid, left mid, left apex and left anterior samples with adenocarcinoma. FINDINGS: Prostatic dimensions: 6.9 x 4.4 x 6.4 cm. Ellipsoid Volume: 101.74 (PSA density=0.08 ng/mL/mL) CENTRAL GLAND (Central and Transition Zones/CZ+TZ): Multiple bilateral, heterogenous appearing hypertrophic stromal nodules, without suspicious lesion. M edian lobe hypertrophy with protrusion into the base of the bladder. (PI-RADS 2) PERIPHERAL ZONE (PZ): The right peripheral gland demonstrates diffuse low T1 signal without associated changes on DWI/ADC i maging. There is no evidence of restricted diffusion within the right gland peripheral gland. There i s intrinsic high T1 signal seen likely sequela prior biopsy within the apex.. The left peripheral gland demonstrates diffuse somewhat increased DWI signal best of appreciated on t he B 1400 imaging with associated low T2 signal with a more focal area in the left peripheral zone ap ex matching area restricted diffusion measuring up to 12 x 10 x 6 mm. (PI-RADS 4) SEMINAL VESICLES (SV): Symmetric and unremarkable. PERIPROSTATIC TISSUES: Unremarkable. LYMPH NODES: No enlarged pelvic lymph node. Prominent right external iliac lymph node measuring up to 0.6 cm in sh ort axis. Series 301 image 36 and 0.5 mm on series 301 image 38. REMAINING PELVIS: Bladder wall is within normal limits given distention. No abnormal free or organized intrapelvic fluid collection. No pathologic bowel dilation or mural thickening. OSSEOUS STRUCTURES: No suspicious osseous abnormality. IMPRESSION: 1. PI-RADS 4 lesion within the left peripheral gland apex.There may be mild bulging of the peripheral gland capsule near the apex no definitive extracapsular extension. No suspicious osseous lesions. Di ffuse involvement based on biopsy report 2. There is a prominent right common iliac lymph nodes, consider gallium-68 PSMA PET/CT for further e valuation. 3. Substantial BPH, estimated gland volume 101 mL.
== END | disposition home or self-care (01) ==
LOC: RADMRIMAIN 07:45
PROVIDERS: ATTEND Urology
DX: C61 Malignant neoplasm of prostate (principal); N40.0 Benign prostatic hyperplasia without lower urinary tract symptoms
CPT/HCPCS: 72197; A9585

== ENCOUNTER → 2022-06-26 | Outpatient (CLI) | payer MEDICARE, OTHER ==
--- NOTE | 2022-06-26 10:26 | XR ---
EXAMINATION TYPE: XR chest 2V DATE OF EXAM: 06/26/2022 COMPARISON: 01/22/2021 HISTORY: 66-year-old male for surgical evaluation, [id number], C61 TECHNIQUE: Frontal and lateral views FINDINGS: The cardiomediastinal silhouette, aorta, and pulmonary vasculature are within normal limits. Lungs an d pleural spaces are clear. [facility] throughout the mid and lower thoracic spine. IMPRESSION: No acute cardiopulmonary process. DISH throughout the mid and lower thoracic spine.
[2022-06-26 14:28] LABS: Basophils # (A) 0.02 X 10*3/uL (0.00-0.10); Basophils % (A) 0.2 %; Eosinophils # (A) 0.22 X 10*3/uL (0.04-0.35); Eosinophils % (A) 2.5 %; HCT 48.5 % (39.6-50.0); HGB 16.7 g/dL (13.0-17.0); Immature Grans, Automated 0.3 %; Lymphocytes # (A) 1.99 X 10*3/uL (0.90-5.00); Lymphocytes % (A) 22.6 %; MCH 30.1 pg (27.0-32.0); MCHC 34.4 g/dL (32.0-37.0); MCV 87.4 fL (80.0-97.0); Mean Platelet Volume 10.3 fL (9.5-12.2); Monocytes # (A) 0.63 X 10*3/uL (0.20-1.00); Monocytes % (A) 7.2 %; NRBC Per 100 WBC 0 /100 WBCS (0.0-0.0); Neutrophils % (A) 67.2 %; Platelet Count 227 X 10*3/uL (140-440); RBC 5.55 X 10*6/uL (4.40-5.60); RDW 13.2 % (11.5-14.5); WBC 8.79 X 10*3/uL (4.50-10.00)
[2022-06-26 14:44] LABS: Appearance,Urine Clear (Clear); Bilirubin,Urine Negative (Negative); Blood,Urine Negative (Negative); Color,Urine Yellow (Yellow); Ketones,Urine Negative (Negative); Nitrite,Urine Negative (Negative); Urobilinogen,Urine 0.2 (0.2,1.0)
[2022-06-26 15:33] LABS: African American GFR (CKD) 82.1 (60.0-200.0); Anion Gap 13.4 mmol/L (10.00-18.00); BUN/Creat Ratio 19.82 Ratio (12.00-20.00); Blood Urea Nitrogen 21.6 mg/dL (9.0-27.0); Calcium 9.9 mg/dL (8.7-10.3); Carbon Dioxide 22.7 mmol/L (20.0-27.5); Non-African American GFR(CKD) 70.9 (60.0-200.0); Potassium 4.5 mmol/L (3.5-5.5)
== END | disposition home or self-care (01) ==
LOC: LABPAT 09:33
PROVIDERS: ATTEND Urology
DX: Z01.812 Encounter for preprocedural laboratory examination (principal); C61 Malignant neoplasm of prostate; R31.29 Other microscopic hematuria; R53.83 Other fatigue
CPT/HCPCS: 71046; 80048; 81003; 85025; 87086

== ENCOUNTER 2022-07-05 09:02 | Observation (INO) | payer MEDICARE, OTHER ==
[~2022-07-05 09:02] MED LIST: DEXAMETHASONE SOD PHOSPHATE 4 MG/ML 1 ML VIAL IV ONE; HEPARIN SODIUM,PORCINE/PF 5,000 UNIT/0.5 ML SYRINGE SQ PRN; HYDROmorphone 0.5 MG/0.5 ML SYRINGE IVP PRN; ONDANSETRON 4 MG/2 ML VIAL IVP ONE
[2022-07-05] MEDS: LACTATED RINGERS 1,000 ML IV SCH (09:45)
[2022-07-05] MEDS ORDERED: MIDAZOLAM 2 MG/2 ML VIAL IVP ONE (10:22)
[2022-07-05] MEDS ORDERED: ONDANSETRON 4 MG/2 ML VIAL IVP PRN (11:15)
--- NOTE | 2022-07-05 11:15 | P.HPIHPCON ---
History of Present Illness Chief Complaint: prostate cancer This is a 66 yo male with hx of anitha 6 (3+3) prostate cancer., On biopsy which showed high-volume [place] 6 prostate cancer, and he did have palpable disease on rectal exam. His Prolaris score showed more aggressive disease. He also underwent a prostate MRI that showed bulging along the left side of the prostate and evidence of a PIRADS 4 lesion at that location. He did have some prominent external iliac nodes on the right side, but none of the nodes measured greater than 1 cm. Discussed with him given these findings the option of robotic prostatectomy versus radiation therapy. Of note he also has 102 g prostate, obstructive urinary symptoms. I discussed with him with a radical prostatectomy this will addressed his cancer and his urinary symptoms. Discussed with him the risk which includes but not limited to bleeding, infection, urinary incontinence, erectile dysfunction, strictures. Discussed also potential of injury to nearby organs which includes but not limited to bowel, rectum. Discussed also even with surgery this potential of cancer recurrence and potential of needing additional treatments in the future. Discussed also risk from anesthesia with him. He understood all the risk and agreed to proceed with a robotic radical prostatectomy and pelvic lymph node dissection Consent for Procedure: I have explained the operation/procedure to the patient, including the risks, benefits, side effects, alternative therapies (including not receiving the proposed treatment or service), the likelihood of the patient achieving his/her goals, and potential recuperation problems for the procedure/sedation/analgesia, as well as any blood products, if indicated. I also explained to the patient the risks, benefits and side effects of the alternatives, as well as the risks related to not receiving the proposed procedure, care, treatment, or services. Past Medical History Past Medical History: Cancer, Hyperlipidemia, Hypertension, Osteoarthritis (OA) Additional Past Medical History / Comment(s): PROSTATE CANCER DIAGNOSED 2021. History of Any Multi-Drug Resistant Organisms: None Reported Additional Past Surgical History / Comment(s): vasectomy, colonoscopy Past Anesthesia/Blood Transfusion Reactions: No Reported Reaction Additional Past Anesthesia/Blood Transfusion Reaction / Comment(s): HAS NEVER HAD GENERAL ANESTHESIA. Past Psychological History: Anxiety, Depression Smoking Status: Never smoker Past Alcohol Use History: None Reported Past Drug Use History: None Reported - Past Family History Mother Family Medical History: Cancer Additional Family Medical History / Comment(s): Mother of cancer. Father Family Medical History: Myocardial Infarction (NC) Additional Family Medical History / Comment(s): Father of a NC at the age of 60yrs. Medications and Allergies Home Medications Medication Instructions Recorded Confirmed Type Cholecalciferol (Vitamin D3) 125 mcg PO DAILY 08/14/21 07/05/22 History [Vitamin D3 (125 MCG = 5,000 IU)] Multivitamins, Thera [Multivitamin 1 tab PO DAILY 08/14/21 07/05/22 History (formulary)] ALPRAZolam [Xanax] 2 mg PO TID 06/29/22 07/05/22 History Atorvastatin [Lipitor] 40 mg PO QAM 06/29/22 07/05/22 History Ibuprofen [Motrin] 400 mg PO Q6H PRN 06/29/22 07/05/22 History Losartan Potassium 100 mg PO QAM 06/29/22 07/05/22 History Tamsulosin [Flomax] 0.4 mg PO QAM 06/29/22 07/05/22 History Allergies Allergy/AdvReac Type Severity Reaction Status Date / Time No Known Allergies Allergy Verified 07/05/22 09:29 Surgical - Exam Vital Signs Temp Pulse Resp BP Pulse Ox 97.3 F L 90 18 135/69 94 L 07/05/22 09:25 07/05/22 09:25 07/05/22 09:25 07/05/22 09:25 07/05/22 09:25 - General no distress, no pain - Eyes normal ocular movement, no pale - ENT normal nares, normal mucosa - Respiratory normal expansion, normal respiratory effort - Abdomen Abdomen: soft, non tender Assessment and Plan Assessment: OR for radical prostatectomy, and pelvic lymph node dissection
[2022-07-05] MEDS ORDERED: SUCCINYLCHOLINE CHLORIDE 200 MG/10 ML VIAL IV ONE (12:21)
[2022-07-05] MEDS ORDERED: NEOSTIGMINE 1 MG/ML 10 ML VIAL ONE (12:21)
[2022-07-05] MEDS ORDERED: fentaNYL (PF) 50 MCG/ML 2 ML AMP ONE (12:21)
[2022-07-05] MEDS ORDERED: MIDAZOLAM 2 MG/2 ML VIAL ONE (12:21)
[2022-07-05] MEDS ORDERED: HYDROmorphone (PF) 1 MG/ML ONE (12:21)
[2022-07-05] MEDS ORDERED: PROPOFOL 10 MG/ML 20 ML VIAL IV ONE (12:21)
[2022-07-05] MEDS ORDERED: LIDOCAINE 2% INJ 20 MG/ML (2 ML VIAL) ONE (12:21)
[2022-07-05] MEDS ORDERED: SODIUM CHLORIDE 0.9% (PF) 10 ML VIAL ONE (12:21)
[2022-07-05] MEDS ORDERED: PHENYLEPHRINE-0.9% NACL SYG 1,000 MCG/10 ML SYRINGE ONE (12:21)
[2022-07-05] MEDS ORDERED: GLYCOPYRROLATE 0.2 MG/ML 2 ML VIAL ONE (12:21)
[2022-07-05] MEDS ORDERED: ROCURONIUM 10 MG/ML (5 ML VIAL) IV ONE (12:21)
[2022-07-05] MEDS ORDERED: BUPIVACAINE (PF) 0.25% 30 ML VIAL SQ ONE (12:27)
--- NOTE | 2022-07-05 12:27 | P.ANPRN ---
Procedure Note - Anesthesia - Nerve Block Performed Bilateral Erector Spinae Single Time Out Performed: Yes Date of Procedure: 07/05/22 Location of Patient: PreOp Indication: Dx/Pain Location (abdominal pain), Requested by Surgeon Sedation Type: Sedate with meaningful contact maintained Preparation: Sterile Prep Position: Prone Catheter: None Needle Types: Pajunk Needle Gauge: 21 Ultrasound used to visualize needle placement: Yes Ultrasound used to observe medication spread: Yes Injectate: 0.5% Ropivacaine (see comment for volume) (20 cc + 10 cc of saline on each side) Blood Aspirated: No Pain Paresthesia on Injection Noted: No Resistance on Injection: Normal Image Stored and Saved: Yes Events: Uneventful and Well Tolerated
[2022-07-05] MEDS ORDERED: LACTATED RINGERS 1,000 ML IV ONE (13:05)
--- NOTE | 2022-07-05 16:08 | P.OP ---
Date of Procedure: 07/05/22 Preoperative Diagnosis: Prostate cancer Postoperative Diagnosis: Same Procedure(s) Performed: Robotic-assisted laparoscopic radical prostatectomy, pelvic lymph node dissection Implants: None Anesthesia: MARIE Surgeon: Jj Jay Wardrobe Manager #1: Pj Mejía Estimated Blood Loss (ml): 150 Pathology: other (Prostate, bilateral seminal vesicle, bilateral pelvic lymph node) Condition: stable Disposition: PACU Indications for Procedure: This is a 66 yo male with hx of anitha 6 (3+3) prostate cancer., On biopsy which showed high-volume [place] 6 prostate cancer, and he did have palpable disease on rectal exam. His Prolaris score showed more aggressive disease. He also underwent a prostate MRI that showed bulging along the left side of the prostate and evidence of a PIRADS 4 lesion at that location. He did have some prominent external iliac nodes on the right side, but none of the nodes measured greater than 1 cm. Discussed with him given these findings the option of robotic prostatectomy versus radiation therapy. Of note he also has 102 g prostate, obstructive urinary symptoms. I discussed with him with a radical prostatectomy this will addressed his cancer and his urinary symptoms. Discussed with him the risk which includes but not limited to bleeding, infection, urinary incontinence, erectile dysfunction, strictures. Discussed also potential of injury to nearby organs which includes but not limited to bowel, rectum. Discussed also even with surgery this potential of cancer recurrence and potential of needing additional treatments in the future. Discussed also risk from anesthesia with him. He understood all the risk and agreed to proceed with a robotic radical prostatectomy and pelvic lymph node dissection Description of Procedure: After preoperative antibiotics were started, the patient was taken to the operating room. Anesthesia was induced and the patient was placed in a low lithitomy position, with adequate padding of the pressure points, shoulders, back, legs and arms. He was then prepped and draped in the standard fashion. A critical pause was performed using two patient identifiers. A 16F pretty catheter was placed to gravity drainage. A pneumo-peritoneum was created with placement of a Veress needle to 20 mm Hg without complication, and a 8 Fr trocar was placed above the umbillicus. Under direct vision a 8mm robotic ports was placed lateral to each rectus slightly below the camera port. The left iliac fossa 8mm port was placed. The right editorial assistant right iliac fossa 12mm port and right paramedian 5mm portwere placed. After the patient was placed in the trendelenberg position, the robot was then docked to the 8mm robotic ports and then each robotic arm and tower was checked in relation to the patient's legs and hands to avoid inadvertent compression. The peritoneal cavity was inspected. An inverted U-shaped incision began laterally to the left medial umbilical ligament and extended high across the midline to the right umbilical ligament. The limbs of the "U" extended to the level of the vasa on both sides. We next developed the preperitoneal space and the space of Retzius. Cautery was used to dissected the bladder away from the prostate. After the anterior bladder neck was incised and the bladder entered the the posterior bladder neck was exposed and the ureteral orifces identified. The posterior bladder neck was then incised and dissected away from the prostate. The vas and the seminal vesicles were now exposed and dissected to their insertions into the prostate and were not spared. The posterior layer of the Denonvillier's fascia was incised to enter lisa the plane between prostate and perirectal fat. Lateral pedicle was controlled with the vessel sealer. complete Nerve preservation was performed bilaterally . The puboprostatic ligament was incised where it inserted into the apex of the prostate and a plane between urethra and dorsal venous complex developed to expose the anterior urethral surface. The anterior wall of the urethra was transected with the cut setting a few millimeters distal to the apex of the prostate. The dorsal vein was ligated using 3-0 V lock bilateral obturator and external iliac lymph node packets were carefully dissected after careful visualization of the hypogastric artery and obturator nerve. There was careful attention paid to hemostasis with judicious use of cautery. The urethrovesical anastomosis was performed . the posterior denovillers was reapproximated using 3-0 V lock. A 9 and 6 inch 3-0 V-Lock suture was used to anastomose the urethra and bladder, starting at the 6:00 posterior position. Mucosa was secured in every stitch, to ensure a mucosa to mucosa anastomosis. The stitch was regularly cinched and the anastomosis tightened. Care was taken to not violate the ureteral orifices. The Pretty catheter was advanced, the bladder filled, and the anastomosis was tested, as described above. Anastomsis was watertight a 150 mL Patient had a umbilical hernia, the hernia sac was excised. The fascial edge was reapproximated using #1 PDS in [id number] fashion. All ports were closed with a subcuticular 4-0 monocryl and Dermabond. Sponge, instrument, and needle counts were correct at the end of the case x2. All specimens including prostate and lymph nodes were sent to pathology for diagnosis and will be available in a week. The patient tolerated the surgery well and without complication. He awoke without difficulty and was taken to the recovery room in stable condition
[2022-07-05] MEDS ORDERED: MEPERIDINE 50 MG/ML SYRINGE IVP ONE (16:36)
[2022-07-05] MEDS: ALPRAZolam 1 MG TAB PO SCH ×2 (17:50→21:53)
[2022-07-05] MEDS: KETOROLAC 15 MG/ML 1 ML VIAL IVP SCH ×4 (17:50→23:56)
[2022-07-05] MEDS: HEPARIN SODIUM,PORCINE/PF 5,000 UNIT/0.5 ML SYRINGE SQ SCH ×2 (17:50→23:57)
[2022-07-05] MEDS: D5-0.45% NACL WITH KCL 20MEQ/L 1,000 ML IV SCH (17:55)
[2022-07-05] MEDS: HYDROcodone/APAP 5-325MG 1 EACH TAB PO PRN ×2 (19:51→23:56)
[2022-07-06] MEDS: D5-0.45% NACL WITH KCL 20MEQ/L 1,000 ML IV SCH ×2 (01:04→04:17)
[2022-07-06] MEDS: HYDROcodone/APAP 5-325MG 1 EACH TAB PO PRN (04:18)
[2022-07-06] MEDS: KETOROLAC 15 MG/ML 1 ML VIAL IVP SCH ×2 (05:34→13:22)
[2022-07-06] MEDS: LACTATED RINGERS 1,000 ML IV SCH (05:35)
[2022-07-06] MEDS: HEPARIN SODIUM,PORCINE/PF 5,000 UNIT/0.5 ML SYRINGE SQ SCH (07:58)
[2022-07-06] MEDS: ALPRAZolam 1 MG TAB PO SCH (07:58)
[2022-07-06] MEDS ORDERED: LOSARTAN 50 MG TAB PO SCH (09:00)
[2022-07-06] MEDS ORDERED: ATORVASTATIN 40 MG TAB PO SCH (09:00)
[2022-07-06 10:09] VITALS: BP 122/73; PULSE 94; RESP 16; TEMP 98.1
--- NOTE | 2022-07-06 12:28 | P.DS ---
Providers Date of admission: 07/06/22 07:44 Attending physician: Jj Jay MD Primary care physician: Vazquez Nolandhven [facility] Course: This is 66-year-old male with history of prostate cancer. Underwent a robotic- assisted prostatectomy on July 05. Please see op note dated July 05 for surgery details. Patient was admitted to the hospital postoperatively, he was discharged home on postop day #1, at time of discharge he was tolerating a diet, ambulating, pain was controlled Plan - Discharge Summary Discharge Rx Participant: No New Discharge Prescriptions: New Ciprofloxacin HCl [Cipro] 250 mg PO Q12HR 3 Days #6 tab HYDROcodone/APAP 5-325MG [Wellpinit 5-325] 1 tab PO Q6HR PRN 3 Days #6 tab PRN Reason: Pain Ketorolac [Toradol] 10 mg PO Q6HR PRN #10 tab PRN Reason: Pain No Action Multivitamins, Thera [Multivitamin (formulary)] 1 tab PO DAILY Tamsulosin [Flomax] 0.4 mg PO QAM Atorvastatin [Lipitor] 40 mg PO QAM ALPRAZolam [Xanax] 2 mg PO TID Cholecalciferol (Vitamin D3) [Vitamin D3 (125 MCG = 5,000 IU)] 125 mcg PO DAILY Losartan Potassium 100 mg PO QAM Ibuprofen [Motrin] 400 mg PO Q6H PRN PRN Reason: Pain Discharge Medication List Cholecalciferol (Vitamin D3) [Vitamin D3 (125 MCG = 5,000 IU)] 125 mcg PO DAILY 08/14/21 [History] Multivitamins, Thera [Multivitamin (formulary)] 1 tab PO DAILY 08/14/21 [History] ALPRAZolam [Xanax] 2 mg PO TID 06/29/22 [History] Atorvastatin [Lipitor] 40 mg PO QAM 06/29/22 [History] Ibuprofen [Motrin] 400 mg PO Q6H PRN 06/29/22 [History] Losartan Potassium 100 mg PO QAM 06/29/22 [History] Tamsulosin [Flomax] 0.4 mg PO QAM 06/29/22 [History] Ciprofloxacin HCl [Cipro] 250 mg PO Q12HR 3 Days #6 tab 07/06/22 [Rx] HYDROcodone/APAP 5-325MG [Wellpinit 5-325] 1 tab PO Q6HR PRN 3 Days #6 tab 07/06/22 [Rx] Ketorolac [Toradol] 10 mg PO Q6HR PRN #10 tab 07/06/22 [Rx] Activity/Diet/Wound Care/Special Instructions: Increase fluid intake It's normal to see blood in the urine Start your antibiotics one day prior to your follow up appointment You may shower no baths No heavy lifting or straining
--- NOTE | 2022-07-07 18:31 | CONS ---
CONSULTATION CHIEF COMPLAINT: Carcinoma of the prostate. HISTORY OF PRESENT ILLNESS: This gentleman is doing well having undergone his RALP. REVIEW OF SYSTEMS: He denies any confusion, fever, chills, cough, shortness of breath, chest pain, etc. He is not nauseated. Past medical history, family history, and personal and social histories are all detailed in his history and physical. MEDICATIONS: He normally is on: 1. Atorvastatin. 2. Losartan. 3. Xanax. 4. Mirtazapine. 5. Vitamin D3. SOCIAL HISTORY: He does not smoke. PHYSICAL EXAMINATION: VITAL SIGNS: Blood pressure 132/86 with a pulse of 80, respirations 29. He is afebrile. GENERAL: Appeared to be well developed, well nourished, and in no acute distress. He is awake and alert. SKIN: Color is normal. Skin is warm and dry. ABDOMEN: The incisions on the abdomen are clean and dry. There is no bleeding. EXTREMITIES: Normal. The remainder of the exam was normal. IMPRESSION: 1. Status post prostatectomy. 2. History of hypertension. 3. History of hyperlipidemia. RECOMMENDATIONS: None. He is doing well. MMODL / IJN: [id number] /
== END 2022-07-06 14:04 ==
LOC: OR 09:02 → 4SSUR 16:01 → OR 07-06 07:44 → 4SSUR 07-06 07:44
PROVIDERS: ADMIT Urology; ATTEND Urology
DX: C61 Malignant neoplasm of prostate (principal); I10 Essential (primary) hypertension; E78.5 Hyperlipidemia, unspecified; I44.0 Atrioventricular block, first degree; M19.90 Unspecified osteoarthritis, unspecified site; F41.9 Anxiety disorder, unspecified; F32.A Depression, unspecified; Z98.52 Vasectomy status; Z98.890 Other specified postprocedural states; Z80.9 Family history of malignant neoplasm, unspecified; Z82.49 Family history of ischemic heart disease and other diseases of the circulatory system; Z79.899 Other long term (current) drug therapy
CPT/HCPCS: 64999; 86900; 86901; 86850; 88307; 88309; 55866; 38571; G0378; C1762; J2250; J0330; J1100; J2710; J2175; J0690; J2405; J3010; J1170; J1885 ×2; J2370; J2704; J1644 ×2; J2001

== ENCOUNTER 2025-03-15 07:51 | Inpatient (IN) | payer MEDICARE, MEDICAID ==
[2025-03-15 08:12] LABS: Glucose,Whole Blood 94 mg/dL (70-110)
--- NOTE | 2025-03-15 08:14 | ED ---
General Adult HPI - General Chief complaint: Altered Mental Status Stated complaint: AMS Time Seen by Provider: 03/15/25 07:55 Source: patient, EMS, RN notes reviewed, old records reviewed Mode of arrival: EMS Limitations: no limitations - History of Present Illness Initial comments: 69-year-old male presenting for altered mental status. Patient was found outside of his apartment. He was confused. There was no external signs of trauma. Patient does recall cleaning his apartment this morning prior to this event. He denies focal numbness or weakness. He reports a mild headache. Patient does admit to being prescribed Xanax and he took Tylenol PM. He denies current chest or abdominal pain. Denies fever. Denies focal numbness or weakness. Patient does endorse suicidal ideation at this time. - Related Data Home Medications Medication Instructions Recorded Confirmed ALPRAZolam [Xanax] 2 mg PO TID PRN 06/29/22 03/15/25 Atorvastatin [Lipitor] 40 mg PO DAILY 06/29/22 03/15/25 Losartan Potassium 100 mg PO DAILY 06/29/22 03/15/25 Allergies Allergy/AdvReac Type Severity Reaction Status Date / Time No Known Allergies Allergy Verified 03/15/25 10:29 Review of Systems ROS Statement: Those systems with pertinent positive or pertinent negative responses have been documented in the HPI. ROS Other: All systems not noted in ROS Statement are negative. Past Medical History Past Medical History: No Reported History Additional Past Medical History / Comment(s): Pt states since recently starting bupropion, he has been having dizziness and memory problems, pt states he has been running high blood pressures but has not been started on any htn meds, recent back pain. History of Any Multi-Drug Resistant Organisms: None Reported Additional Past Surgical History / Comment(s): vasectomy, colonoscopy Past Anesthesia/Blood Transfusion Reactions: No Reported Reaction Additional Past Anesthesia/Blood Transfusion Reaction / Comment(s): HAS NEVER HAD GENERAL ANESTHESIA. Past Psychological History: Anxiety, Depression Past Alcohol Use History: Occasional - Past Family History Mother Family Medical History: Cancer Additional Family Medical History / Comment(s): Mother of cancer. Father Family Medical History: Myocardial Infarction (NH) Additional Family Medical History / Comment(s): Father of a NH at the age of 60yrs. General Exam General appearance: alert, in no apparent distress Head exam: Present: atraumatic, normocephalic Eye exam: Present: normal appearance, PERRL ENT exam: Present: normal exam Neck exam: Present: normal inspection. Absent: tenderness, meningismus Respiratory exam: Present: normal lung sounds bilaterally. Absent: respiratory distress, wheezes Cardiovascular Exam: Present: regular rate, normal rhythm GI/Abdominal exam: Present: soft. Absent: distended, tenderness, guarding Extremities exam: Present: normal inspection Neurological exam: Present: alert, oriented X3, CN II-XII intact Psychiatric exam: Present: flat affect, suicidal ideation Skin exam: Present: warm, dry, intact Course Vital Signs 03/15/25 03/15/25 03/15/25 07:52 10:54 11:21 Temperature 98.1 F Pulse Rate 96 89 83 Respiratory 18 16 16 Rate Blood Pressure 161/90 122/68 160/96 O2 Sat by Pulse 94 L 96 98 Oximetry Medical Decision Making - Medical Decision Making Was pt. sent in by a medical professional or institution (, PA, PRECIPITATOR OPERATOR, urgent care, hospital, or shelter...) When possible be specific @ -No Did you speak to anyone other than the patient for history (EMS, parent, family, police, friend...)? What history was obtained from this source @ -No Did you review nursing and triage notes (agree or disagree)? Why? @ -I reviewed and agree with nursing and triage notes Were old charts reviewed (outside hosp., previous admission, EMS record, old EKG, old radiological studies, urgent care reports/EKG's, shelter records)? Report findings @ -No old charts were reviewed Differential Altered Mental Status: Hypoglycemia, DKA, hypercapnia, ETOH, overdose, CO poisoning, trauma, myxedema coma, HTN encephalopathy, infection, encephalitis, psychosis, intercranial hemorrhage, hepatic encephalopathy, meningitis, CVA, this is not meant to be an all-inclusive list Differential Mental Health Depression, anxiety, bipolar, psychosis, schizophrenia, borderline personality, situational depression, adjustment disorder, behavioral disorder, brain tumor, malingering, substance abuse, encephalopathy, medication reaction, dementia, hypothyroidism, degenerative neurologic disorder, lupus.... This is not meant to be all-inclusive list EKG interpreted by me (3pts min.). @ -Sinus rhythm rate of 76, TN interval 209, QRS duration 85, QTc [address] segment elevation X-rays interpreted by me (1pt min.). @ -None done CT interpreted by me (1pt min.). @ -CT is negative for acute intracranial hemorrhage or mass effect. U/S interpreted by me (1pt. min.). @ -None done What testing was considered but not performed or refused? (CT, X-rays, U/S, labs)? Why? @ -None What meds were considered but not given or refused? Why? @ -None Did you discuss the management of the patient with other professionals (professionals i.e. , PA, PRECIPITATOR OPERATOR, lab, RT, psych nurse, social work faculty member, crucible furnace tender, t eacher, title officer, casework supervisor)? Give summary @ -No Was smoking cessation discussed for >3mins.? @ -No Was critical care preformed (if so, how long)? @ -No Were there social determinants of health that impacted care today? How? (Homelessness, low income, unemployed, alcoholism, drug addiction, transportation, low edu. Level, literacy, decrease access to med. care, nursing home, rehab)? @ -No Was there de-escalation of care discussed even if they declined (Discuss DNR or withdrawal of care, Hospice)? DNR status @ -No What co-morbidities impacted this encounter? (DM, HTN, Smoking, COPD, CAD, Cancer, CVA, ARF, Chemo, Hep., AIDS, mental health diagnosis, sleep apnea, morbid obesity)? @ -None Was patient admitted / discharged? Hospital course, mention meds given and route, prescriptions, significant lab abnormalities, going to OR and other pertinent info. @ -69-year-old male presenting with a brief episode of confusion, likely medication effect, patient did take a Tylenol PM. Patient is awake, alert and oriented at the time my evaluation no focal findings. I did work him up includi ng CT, laboratory testing, urinalysis. Patient was medically cleared and then was evaluated for his suicidal ideation by EPS and felt to require inpatient psychiatric care. I have completed a clinical certification on this patient. Undiagnosed new problem with uncertain prognosis? @ -No Drug Therapy requiring intensive monitoring for toxicity (Heparin, Nitro, Insulin, Cardizem)? @ -No Were any procedures done? @ -No Diagnosis/symptom? @ -Suicidal ideation Acute, or Chronic, or Acute on Chronic? @ -Acute Uncomplicated (without systemic symptoms) or Complicated (systemic symptoms)? @ -Default Side effects of treatment? @ -No Exacerbation, Progression, or Severe Exacerbation? @ -No Poses a threat to life or bodily function? How? (Chest pain, USA, NH, pneumonia, PE, COPD, DKA, ARF, appy, cholecystitis, CVA, Diverticulitis, Homicidal, Suicidal, threat to staff... and all critical care pts) @Yes, suicidal - Lab Data Result diagrams: 03/15/25 08:09 03/15/25 08:09 Lab Results 03/15/25 03/15/25 03/15/25 Range/Units 08:09 08:09 08:09 WBC 6.68 (4.50-10.00) 10*3/uL RBC 4.12 L (4.40-5.60) 10*6/uL Hgb 13.6 (13.0-17.0) g/dL Hct 38.4 L (39.6-50.0) % MCV 93.2 (80.0-97.0) fL MCH 33.0 H (27.0-32.0) pg MCHC 35.4 (32.0-37.0) g/dL Plt Count 206 (140-440) 10*3/uL MPV 9.5 (9.5-12.2) fL Immature Gran % (Auto) 0.1 % Neutrophils % 64.2 % Lymphocytes % 22.0 % Monocytes % 9.4 % Eosinophils % 4.0 % Basophils % 0.3 % Immature Gran # 0.01 (0.00-0.04) 10*3/uL Neutrophils # 4.28 (1.80-7.70) 10*3/uL Lymphocytes # 1.47 (0.90-5.00) 10*3/uL Monocytes # 0.63 (0.20-1.00) 10*3/uL Eosinophils # 0.27 (0.04-0.35) 10*3/uL Basophils # 0.02 (0.00-0.10) 10*3/uL PT 10.6 (10.0-12.5) sec INR 0.9 (<1.2) APTT 25.2 (22.0-30.0) sec Sodium 138 (137-145) mmol/L Potassium 4.5 (3.5-5.1) mmol/L Chloride 104 (98-107) mmol/L Carbon Dioxide 28 (22-30) mmol/L Anion Gap 6 mmol/L BUN 15 (9-20) mg/dL Creatinine 0.90 (0.66-1.25) mg/dL Est GFR (CKD-EPI)AfAm >90 (>60 ml/min/1.73 sqM) Est GFR (CKD-EPI)NonAf 87 (>60 ml/min/1.73 sqM) Glucose 94 (74-99) mg/dL POC Glucose (mg/dL) (70-110) mg/dL POC Glu Vocational Director ID Calcium 9.0 (8.4-10.2) mg/dL Total Bilirubin 1.0 (0.2-1.3) mg/dL AST 39 (17-59) U/L ALT 32 (4-49) U/L Alkaline Phosphatase 57 (38-126) U/L Troponin I (0.000-0.034) ng/mL Total Protein 6.3 (6.3-8.2) g/dL Albumin 3.8 (3.5-5.0) g/dL Urine Color Urine Appearance (Clear) Urine pH (5.0-8.0) Ur Specific Archer (1.001-1.035) Urine Protein (Negative) Urine Glucose (UA) (Negative) Urine Ketones (Negative) Urine Blood (Negative) Urine Nitrite (Negative) Urine Bilirubin (Negative) Urine Urobilinogen (<2.0) mg/dL Ur Leukocyte Esterase (Negative) Urine Opiates Screen (NotDetected) Ur Oxycodone Screen (NotDetected) Urine Methadone Screen (NotDetected) Ur Barbiturates Screen (NotDetected) U Tricyclic Antidepress (NotDetected) Ur Phencyclidine Scrn (NotDetected) Ur Amphetamines Screen (NotDetected) U Methamphetamines Scrn (NotDetected) U Benzodiazepines Scrn (NotDetected) Urine Cocaine Screen (NotDetected) U Marijuana (THC) Screen (NotDetected) Serum Alcohol <10 mg/dL 03/15/25 03/15/25 03/15/25 Range/Units 08:09 08:11 10:00 WBC (4.50-10.00) 10*3/uL RBC (4.40-5.60) 10*6/uL Hgb (13.0-17.0) g/dL Hct (39.6-50.0) % MCV (80.0-97.0) fL MCH (27.0-32.0) pg MCHC (32.0-37.0) g/dL Plt Count (140-440) 10*3/uL MPV (9.5-12.2) fL Immature Gran % (Auto) % Neutrophils % % Lymphocytes % % Monocytes % % Eosinophils % % Basophils % % Immature Gran # (0.00-0.04) 10*3/uL Neutrophils # (1.80-7.70) 10*3/uL Lymphocytes # (0.90-5.00) 10*3/uL Monocytes # (0.20-1.00) 10*3/uL Eosinophils # (0.04-0.35) 10*3/uL Basophils # (0.00-0.10) 10*3/uL PT (10.0-12.5) sec INR (<1.2) APTT (22.0-30.0) sec Sodium (137-145) mmol/L Potassium (3.5-5.1) mmol/L Chloride (98-107) mmol/L Carbon Dioxide (22-30) mmol/L Anion Gap mmol/L BUN (9-20) mg/dL Creatinine (0.66-1.25) mg/dL Est GFR (CKD-EPI)AfAm (>60 ml/min/1.73 sqM) Est GFR (CKD-EPI)NonAf (>60 ml/min/1.73 sqM) Glucose (74-99) mg/dL POC Glucose (mg/dL) 94 (70-110) mg/dL POC Glu Vocational Director ID Blandon Alexia Calcium (8.4-10.2) mg/dL Total Bilirubin (0.2-1.3) mg/dL AST (17-59) U/L ALT (4-49) U/L Alkaline Phosphatase (38-126) U/L Troponin I <0.012 (0.000-0.034) ng/mL Total Protein (6.3-8.2) g/dL Albumin (3.5-5.0) g/dL Urine Color Colorless Urine Appearance Clear (Clear) Urine pH 5.5 (5.0-8.0) Ur Specific Archer 1.006 (1.001-1.035) Urine Protein Negative (Negative) Urine Glucose (UA) Negative (Negative) Urine Ketones Negative (Negative) Urine Blood Negative (Negative) Urine Nitrite Negative (Negative) Urine Bilirubin Negative (Negative) Urine Urobilinogen <2.0 (<2.0) mg/dL Ur Leukocyte Esterase Negative (Negative) Urine Opiates Screen Not Detected (NotDetected) Ur Oxycodone Screen Not Detected (NotDetected) Urine Methadone Screen Not Detected (NotDetected) Ur Barbiturates Screen Not Detected (NotDetected) U Tricyclic Antidepress Not Detected (NotDetected) Ur Phencyclidine Scrn Not Detected (NotDetected) Ur Amphetamines Screen Not Detected (NotDetected) U Methamphetamines Scrn Not Detected (NotDetected) U Benzodiazepines Scrn Detected H (NotDetected) Urine Cocaine Screen Not Detected (NotDetected) U Marijuana (THC) Screen Not Detected (NotDetected) Serum Alcohol mg/dL Disposition Clinical Impression: Suicidal ideations Disposition: ADMITTED IP TO THIS [facility] Condition: Stable Is patient prescribed a controlled substance at d/c from ED?: No Referrals: Vazquez See MD [Primary Care Provider] - 1-2 days Time of Disposition: 13:14
[2025-03-15 08:16] LABS: Basophils # (A) 0.02 10*3/uL (0.00-0.10); Basophils % (A) 0.3 %; Eosinophils # (A) 0.27 10*3/uL (0.04-0.35); Eosinophils % (A) 4.0 %; HCT 38.4 % (39.6-50.0); HGB 13.6 g/dL (13.0-17.0); Lymphocytes # (A) 1.47 10*3/uL (0.90-5.00); Lymphocytes % (A) 22.0 %; MCH 33.0 pg (27.0-32.0); MCHC 35.4 g/dL (32.0-37.0); MCV 93.2 fL (80.0-97.0); Monocytes # (A) 0.63 10*3/uL (0.20-1.00); Monocytes % (A) 9.4 %; Neutrophils # (A) 4.28 10*3/uL (1.80-7.70); Neutrophils % (A) 64.2 %; Platelet Count 206 10*3/uL (140-440); RBC 4.12 10*6/uL (4.40-5.60); RDW 12.0 % (11.5-14.5); WBC 6.68 10*3/uL (4.50-10.00)
[2025-03-15] MEDS: SODIUM CHLORIDE 0.9% 1,000 ML IV ONE (08:20)
[2025-03-15 08:30] LABS: ALT 32 U/L (4-49); African American GFR (CKD) >90 (>60 ml/min/1.73 sqM); Albumin 3.8 g/dL (3.5-5.0); Anion Gap 6 mmol/L; Blood Urea Nitrogen 15 mg/dL (9-20); Calcium 9.0 mg/dL (8.4-10.2); Carbon Dioxide 28 mmol/L (22-30); Chloride 104 mmol/L (98-107); Glucose 94 mg/dL (74-99); Non-African American GFR(CKD) 87 (>60 ml/min/1.73 sqM); Sodium 138 mmol/L (137-145); Total Protein 6.3 g/dL (6.3-8.2)
[2025-03-15 08:35] LABS: AST 39 U/L (17-59); Alkaline Phosphatase 57 U/L (38-126); Potassium 4.5 mmol/L (3.5-5.1)
[2025-03-15 08:36] LABS: INR 0.9 (<1.2); Partial Thromboplastin Time 25.2 sec (22.0-30.0); Prothrombin Time 10.6 sec (10.0-12.5)
--- NOTE | 2025-03-15 09:18 | CT ---
EXAMINATION TYPE: CT brain wo con DATE OF EXAM: 03/15/2025 9:00 AM COMPARISON: 01/22/2021. CLINICAL INDICATION: Male, 69 years old with history of Altered mental status, Altered mental status TECHNIQUE: Brain: Axial CT images of the brain were obtained with coronal and sagittal reformats created and rev iewed. Contrast used: None. Oral contrast used: None. CT DLP: 1200.4 mGycm, Automated exposure control for dose reduction was used. FINDINGS: Brain: Extra-axial spaces: No abnormal extra-axial fluid collections. Dense falx calcifications noted. Ventricular system: Dilatation in proportion to cerebral atrophy. Cerebral parenchyma: Cerebral atrophy. No acute intraparenchymal hemorrhage or mass effect. The leonard -white junction is well differentiated. Scattered hypoattenuating areas are seen within the white mat ter. Cerebellum: Unremarkable. Mass effect: No evidence of midline shift. Intracranial vasculature: unremarkable Soft tissues: Normal. Calvarium/osseous structures: No depressed skull fracture. Paranasal sinuses and mastoid air cells: Mild scattered paranasal sinus disease. Visualized orbits: Orbital contents are intact. IMPRESSION: 1. No acute intracranial process. 2. Nonspecific white matter changes, likely secondary to chronic small vessel ischemic disease. [facility], , 03/15/2025 9:15 AM
[2025-03-15 10:10] LABS: Bilirubin,Urine Negative (Negative); Blood,Urine Negative (Negative); Color,Urine Colorless; Glucose,Urine (UA) Negative (Negative); Ketones,Urine Negative (Negative); Leukocyte Esterase,Urine Negative (Negative); Nitrite,Urine Negative (Negative); PH, Urine 5.5 (5.0-8.0); Protein,Urine Negative (Negative); Specific Gravity,Urine 1.006 (1.001-1.035); Urobilinogen,Urine <2.0 mg/dL (<2.0)
[2025-03-15 10:22] LABS: Barbiturate Screen,Urine Not Detected (NotDetected); Benzodiazepines Screen,Urine Detected (NotDetected); Opiate Screen,Urine Not Detected (NotDetected); Oxycodone Screen, Urine Not Detected (NotDetected); Phencyclidine Screen,Urine Not Detected (NotDetected); Tricyclic Antidepressant,Urine Not Detected (NotDetected); Urn Cannabinoid Scrn Not Detected (NotDetected)
[2025-03-15] MEDS ORDERED: IBUPROFEN 600 MG TAB PO PRN (15:35)
[2025-03-15] MEDS ORDERED: MAGNESIUM HYDROXIDE 2,400 MG/30 ML CUP PO PRN (15:35)
[2025-03-15] MEDS ORDERED: ACETAMINOPHEN TAB 325 MG TAB PO PRN (15:35)
[2025-03-15] MEDS ORDERED: MAG HYDROX/AL HYDROX/SIMETH 355 ML BOTTLE PO PRN (15:35)
[2025-03-15] MEDS ORDERED: HALOPERIDOL LACTATE 5 MG/ML 1 ML VIAL IM PRN (15:35)
[2025-03-15 17:02] LABS: Glucose,Whole Blood 114 mg/dL (70-110)
[2025-03-15] MEDS: LORazepam 1 MG TAB PO PRN (19:59)
[2025-03-16 08:44] LABS: Cholesterol 98.00 mg/dL (0.00-200.00); HDL Cholesterol 34.30 mg/dL (40.00-60.00); LDL Cholesterol,Calculated 8.1 mg/dL (0.0-131.0); Triglycerides 278.00 mg/dL (0.00-149.00); VLDL Calculation 55.60 mg/dL (5.00-40.00)
[2025-03-16] MEDS: ATORVASTATIN 40 MG TAB PO SCH (09:59)
[2025-03-16] MEDS: LOSARTAN 50 MG TAB PO SCH (09:59)
[2025-03-16] MEDS: NALTREXONE HCL 50 MG TAB PO SCH (11:54)
[2025-03-16] MEDS: FOLIC ACID 1 MG TAB PO SCH (13:35)
[2025-03-16] MEDS: MULTIVITAMINS, THERA 1 EACH TAB PO SCH (13:35)
[2025-03-16] MEDS: THIAMINE 100 MG TAB PO SCH (13:35)
--- NOTE | 2025-03-16 13:37 | P.HP ---
Psychiatric H&P - . H&P Date: 03/16/25 History & Physical: Allergies Allergy/AdvReac Type Severity Reaction Status Date / Time No Known Allergies Allergy Verified 03/15/25 10:29 Vital Signs Temp 97.4 F L 03/16/25 09:00 Pulse 70 03/16/25 09:00 Resp 18 03/15/25 20:14 BP 143/87 03/16/25 09:00 Pulse Ox 97 03/16/25 09:00 FiO2 Intake & Output 03/15/25 03/16/25 03/16/25 18:59 06:59 18:59 Weight 95.345 kg Laboratory Last Values WBC 6.68 10*3/uL (4.50-10.00) 03/15/25 08:09 RBC 4.12 10*6/uL (4.40-5.60) L 03/15/25 08:09 Hgb 13.6 g/dL (13.0-17.0) 03/15/25 08:09 Hct 38.4 % (39.6-50.0) L 03/15/25 08:09 MCV 93.2 fL (80.0-97.0) 03/15/25 08:09 MCH 33.0 pg (27.0-32.0) H 03/15/25 08:09 MCHC 35.4 g/dL (32.0-37.0) 03/15/25 08:09 Plt Count 206 10*3/uL (140-440) 03/15/25 08:09 MPV 9.5 fL (9.5-12.2) 03/15/25 08:09 Immature Gran % (Auto) 0.1 % 03/15/25 08:09 Neutrophils % 64.2 % 03/15/25 08:09 Lymphocytes % 22.0 % 03/15/25 08:09 Monocytes % 9.4 % 03/15/25 08:09 Eosinophils % 4.0 % 03/15/25 08:09 Basophils % 0.3 % 03/15/25 08:09 Immature Gran # 0.01 10*3/uL (0.00-0.04) 03/15/25 08:09 Neutrophils # 4.28 10*3/uL (1.80-7.70) 03/15/25 08:09 Lymphocytes # 1.47 10*3/uL (0.90-5.00) 03/15/25 08:09 Monocytes # 0.63 10*3/uL (0.20-1.00) 03/15/25 08:09 Eosinophils # 0.27 10*3/uL (0.04-0.35) 03/15/25 08:09 Basophils # 0.02 10*3/uL (0.00-0.10) 03/15/25 08:09 PT 10.6 sec (10.0-12.5) 03/15/25 08:09 INR 0.9 (<1.2) 03/15/25 08:09 APTT 25.2 sec (22.0-30.0) 03/15/25 08:09 Sodium 138 mmol/L (137-145) 03/15/25 08:09 Potassium 4.5 mmol/L (3.5-5.1) 03/15/25 08:09 Chloride 104 mmol/L (98-107) 03/15/25 08:09 Carbon Dioxide 28 mmol/L (22-30) 03/15/25 08:09 Anion Gap 6 mmol/L 03/15/25 08:09 BUN 15 mg/dL (9-20) 03/15/25 08:09 Creatinine 0.90 mg/dL (0.66-1.25) 03/15/25 08:09 Est GFR (CKD-EPI)AfAm >90 (>60 ml/min/1.73 sqM) 03/15/25 08:09 Est GFR (CKD-EPI)NonAf 87 (>60 ml/min/1.73 sqM) 03/15/25 08:09 Glucose 94 mg/dL (74-99) 03/15/25 08:09 POC Glucose (mg/dL) 114 mg/dL (70-110) H 03/15/25 17:00 POC Glu Health Services Coordinator ID Pipe Hernandez 03/15/25 17:[address] Glu mg/dL 120 mg/dL 03/15/25 08:09 Hemoglobin A1c 5.8 % (<=6.0) 03/15/25 08:09 Calcium 9.0 mg/dL (8.4-10.2) 03/15/25 08:09 Total Bilirubin 1.0 mg/dL (0.2-1.3) 03/15/25 08:09 AST 39 U/L (17-59) 03/15/25 08:09 ALT 32 U/L (4-49) 03/15/25 08:09 Alkaline Phosphatase 57 U/L (38-126) 03/15/25 08:09 Troponin I <0.012 ng/mL (0.000-0.034) 03/15/25 08:09 Total Protein 6.3 g/dL (6.3-8.2) 03/15/25 08:09 Albumin 3.8 g/dL (3.5-5.0) 03/15/25 08:09 Triglycerides 278.00 mg/dL (0.00-149.00) H 03/15/25 08:09 Cholesterol 98.00 mg/dL (0.00-200.00) 03/15/25 08:09 LDL Cholesterol, Calc 8.1 mg/dL (0.0-131.0) 03/15/25 08:09 VLDL Cholesterol, Calc 55.60 mg/dL (5.00-40.00) H 03/15/25 08:09 HDL Cholesterol 34.30 mg/dL (40.00-60.00) L 03/15/25 08:09 Cholesterol/HDL Ratio 2.86 Ratio 03/15/25 08:09 TSH 2.890 UIU/ML (0.350-5.500) 03/15/25 08:09 Urine Color Colorless 03/15/25 10:00 Urine Appearance Clear (Clear) 03/15/25 10:00 Urine pH 5.5 (5.0-8.0) 03/15/25 10:00 Ur Specific [place] 1.006 (1.001-1.035) 03/15/25 10:00 Urine Protein Negative (Negative) 03/15/25 10:00 Urine Glucose (UA) Negative (Negative) 03/15/25 10:00 Urine Ketones Negative (Negative) 03/15/25 10:00 Urine Blood Negative (Negative) 03/15/25 10:00 Urine Nitrite Negative (Negative) 03/15/25 10:00 Urine Bilirubin Negative (Negative) 03/15/25 10:00 Urine Urobilinogen <2.0 mg/dL (<2.0) 03/15/25 10:00 Ur Leukocyte Esterase Negative (Negative) 03/15/25 10:00 Urine Opiates Screen Not Detected (NotDetected) 03/15/25 10:00 Ur Oxycodone Screen Not Detected (NotDetected) 03/15/25 10:00 Urine Methadone Screen Not Detected (NotDetected) 03/15/25 10:00 Ur Barbiturates Screen Not Detected (NotDetected) 03/15/25 10:00 U Tricyclic Antidepress Not Detected (NotDetected) 03/15/25 10:00 Ur Phencyclidine Scrn Not Detected (NotDetected) 03/15/25 10:00 Ur Amphetamines Screen Not Detected (NotDetected) 03/15/25 10:00 U Methamphetamines Scrn Not Detected (NotDetected) 03/15/25 10:00 U Benzodiazepines Scrn Detected (NotDetected) H 03/15/25 10:00 Urine Cocaine Screen Not Detected (NotDetected) 03/15/25 10:00 U Marijuana (THC) Screen Not Detected (NotDetected) 03/15/25 10:00 Serum Alcohol <10 mg/dL 03/15/25 08:09 SARS-CoV-2 (PCR) Not Detected (Not Detectd) 03/15/25 13:05 03/16/25 13:13 IDENTIFYING DATA: Patient is a 69-year-old male, single and living independently, unemployed CHIEF COMPLAINT: Altered mental status, SI HPI: Patient presented to the hospital with AMS, SI. Per EPS, "Patient brought in by EMS related to altered mental status. During triage assessment patient verbalizes suicidal ideation to Dr. Barbosa and Shania YOUNG with plan stating he owned guns and lived on the 10th floor. Patient assessed in ER24 from [id number]. Patient observed to be laying on hospital stetcher wearing hospital safety gown. Patient calm and agreeable to speak to credit underwriter. Patient verbalizes that he is a healthy person and enjoys lifting weights and going for walks. Patient states he lives in an apartment with multiple other seniors whom he lists as good supports. Patient states that he was cleaning his house and had just went for a walk when he started feeling off, and then EMS was called. Patient states he has minimal knowledge on what happened prior to arrival to the ED. Patient denies suicidal ideations to credit underwriter at this time and denies access to firearms. Patient denies homicidal ideations. Denies auditory and visual hallucinations. Patient verbalizes sporatic compliance with home medications including losartan and lipitor stating he forgets to take them often. Patent also prescribed Xanax 2MG prescribed TID PRN which he states he takes one tablet about 1-2 times per week. Patient verbalizes occasional alcohol use describing 1-2 beers with a meal about twice a week. Patient denies substance use, UDS+Benzos which are prescribed. Patient never smoker." Patient seen and evaluated on the unit and was agreeable with speaking to credit underwriter in office. He did display confusion however he was A&Ox2-3, not day/date. He does mention an acute change in his cognitive function, unable to recall recent events and states he does not remember what happened prior to him being admitted here. He describes a recent specific occasion when he was applying for a job and interview with them however he does not remember the interview or the people interviewing him and also is unable to recall why he did not get the job. He states he does have a psych history that worsened after the passing of his of 21 years roughly 9 years ago. He does mention being put on medications however they did not help and he has not fol lowed up with a psychiatrist or therapist. Patient does report a history of passive suicidal ideations however he vehemently denies any suicidal or homicidal ideations intent or plan. He denies any sleep or appetite difficulties, no issues in concentration or anhedonia. He states he walks daily and that exercise is therapeutic for him. Patient did exhibit unstable gait, nystagmus was negative however given possible Warnicke Korsakoff encephalopathy, lab work was ordered. Patient did admit to drinking at minimum a pint of hard liquor at least 2 times per week for the past 2 years, he did appear to be minimizing his alcohol use as he was fixated on his previous 11-year sobriety. He denied any history of rehab and is not open to this at this time but is agreeable with naltrexone for cravings. At this time patient denies any auditory or visual hallucinations. Patient denies any flight of ideas racing thoughts and increased in goal directed behavior. PAST PSYCHIATRIC HISTORY: Patient has a history of depression, PTSD. Patient is currently only on Xanax 2 mg 3 times daily with maps corroborating this consistent filling each month by PCP Dr. See. Patient denies any previous psychiatric hospitalizations. Patient denies any psychiatric outpatient follow- up. Patient denies any history of suicide attempts in the past. PMH: as per ER note ALLERGIES: as per EMR SUBSTANCE USE HISTORY: As per HPI FAMILY PSYCHIATRIC/SUBSTANCE USE HISTORY: Patient states his uncle and aunt on his father side had mental illness SOCIAL HISTORY: Patient is and lives alone, has no children. 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 MENTAL STATUS EXAM: General Appearance: Patient appears to be stated age is alert, directable, and attempts to cooperate. Patient appears to have poor hygiene and grooming. Behavior: Patient is seated without any agitated behavior. Speech: Patient's speech is fluent and nonpressured. Mood/Affect: Patient reports their mood is "confused", affect is congruent and constricted. Suicidality/Homicidality: Patient denies having any homicidal ideation intent or plan. Denies any suicidal ideations intent or plan Perceptions: Patient denies any visual hallucinations and denies any auditory hallucinations Though content/process: There is no evidence of any delusional thought content and thought process is linear and goal-directed. Memory and concentration: AOX2-3, not day/date Judgment and insight: Poor STRENGTHS/WEAKNESSES: strength is that patient is resilient. Weakness is that patient has poor judgment, abuses alcohol and is impulsive INTELLECT: Average IMPRESSIONS: Alcohol use disorder, severe Rule out Warnicke Korsakoff syndrome Mild cognitive impairment PLAN: -Patient is admitted under voluntary status to MHU for stabilization of psychiatric symptoms and safety. Patient has signed adult voluntary form and and is placed in patient's chart. -Medications : Start naltrexone 50 mg daily for alcohol cravings, trazodone 50 mg at bedtime for insomnia - Ativan and Haldol PRN for agitation/aggression -Started thiamine, MVM for etoh use and ordered vitamin B1/B12 -[facility] protocol with Ativan PRN for ETOH withdrawal. -Patient was counselled on substance abuse and desired to cut back on use-Will offer patient subtance use rehab, pt declined -Patient was informed of the risks, benefits and side effects of the medication and patient verbally consented to taking the medications. Patient signed med consent form and was placed in chart. Patient offered and accepted patient education sheet for psychotropic medications. -Internal Medicine consult to perform medical evaluation and physical. -NRT -not needed as patient does not smoke -SW on board for discharge planning. Encourage patient to participate in groups to work on coping skills. Patient was encouraged to follow-up with his PCP for further workup and his cognitive impairment. Anticipate discharge home tomorrow
[2025-03-17 08:37] VITALS: BP 127/83; PULSE 98; RESP 20; TEMP 97.4
--- NOTE | 2025-03-17 13:25 | P.DS ---
Providers Date of admission: 03/15/25 15:04 Expected date of discharge: 03/17/25 Attending physician: Eulalia Crowley MD Consults: 03/15/25 15:35 Consult Physician Routine Consulting Provider: Vazquez See Consult Reason/Comments: H&P and medical Do you want consulting provider notified?: Yes Primary care physician: Vazquez See - Discharge Diagnosis(es) (1) Substance induced mood disorder Current Visit: Yes Status: Acute Priority: High (2) Alcohol use disorder Current Visit: Yes Status: Acute Priority: High (3) Mild cognitive impairment Current Visit: Yes Status: Acute Priority: High Hospital Course: Admission HPI: Admission note was completed by junior underwriter" Patient presented to the hospital with AMS, SI. Per EPS, "Patient brought in by EMS related to altered mental status. During triage assessment patient verbalizes suicidal ideation to Dr. Barbosa and Shania YOUNG with plan stating he owned guns and lived on the 10th floor. Patient assessed in ER24 from [id number]. Patient observed to be laying on hospital stetcher wearing hospital safety gown. Patient calm and agreeable to speak to junior underwriter. Patient verbalizes that he is a healthy person and enjoys lifting weights and going for walks. Patient states he lives in an apartment with multiple other seniors whom he lists as good supports. Patient states that he was cleaning his house and had just went for a walk when he started feeling off, and then EMS was called. Patient states he has minimal knowledge on what happened prior to arrival to the ED. Patient denies suicidal ideations to junior underwriter at this time and denies access to firearms. Patient denies homicidal ideations. Denies auditory and visual hallucinations. Patient verbalizes sporatic compliance with home medications including losartan and lipitor stating he forgets to take them often. Patent also prescribed Xanax 2MG prescribed TID PRN which he states he takes one tablet about 1-2 times per week. Patient verbalizes occasional alcohol use describing 1-2 beers with a meal about twice a week. Patient denies substance use, UDS+Benzos which are prescribed. Patient never smoker." Patient seen and evaluated on the unit and was agreeable with speaking to junior underwriter in office. He did display confusion however he was A&Ox2-3, not day/date. He does mention an acute change in his cognitive function, unable to recall recent events and states he does not remember what happened prior to him being admitted here. He describes a recent specific occasion when he was applying for a job and interview with them however he does not remember the interview or the people interviewing him and also is unable to recall why he did not get the job. He states he does have a psych history that worsened after the passing of his of 21 years roughly 9 years ago. He does mention being put on medications however they did not help and he has not followed up with a psychiatrist or therapist. Patient does report a history of passive suicidal ideations however he vehemently denies any suicidal or homicidal ideations intent or plan. He denies any sleep or appetite difficulties, no issues in concentration or anhedonia. He states he walks daily and that exercise is therapeutic for him. Patient did exhibit unstable gait, nystagmus was negative however given possible Warnicke Korsakoff encephalopathy, lab work was ordered. Patient did admit to drinking at minimum a pint of hard liquor at least 2 times per week for the past 2 years, he did appear to be minimizing his alcohol use as he was fixated on his previous 11-year sobriety. He denied any history of rehab and is not open to this at this time but is agreeable with naltrexone for c raveprla. At this time patient denies any auditory or visual hallucinations. Patient denies any flight of ideas racing thoughts and increased in goal directed behavior. " Hospital course: Upon admission to the unit patient was directable and agreeable to commence treatment and signed adult voluntary form.. Patient got along well with other patients on the unit and followed unit protocol. Patient was compliant with the medications and denied any side effects throughout hospital course. Patient was started on naltrexone 50 mg daily for alcohol cravings, trazodone 50 mg at bedtime for insomnia. Patient has been experiencing memory lapses with A&Ox2-3, not date/day with periods of confusion. Given patient's gait instability with ongoing alcohol use, there were concerns with Warnicke Korsakoff syndrome however thiamine is still pending from lab work. Also on Xanax 2 mg 3 times daily as needed at this was also discouraged as this could also contribute to cognitive impairment and confusion. Patient spoke of his stressors and engaged in therapy both group and individual. Patient was also seen by medical team for history and physical exam. Throughout the course of the hospitalization patient gradually improved with regards to mood, anxiety, sleep and returned back to their baseline level of functioning. On the day of discharge patient denied any suicidal or homicidal ideations intent or plan denied any auditory or visual hallucinations. The patient denied any access to guns or weapons. Patient denied any paranoia and did not endorse any delusions. Patient does have a si gnificant history of substance abuse and was counseled on abstaining from all substances including alcohol and marijuana. Patient was offered however declined inpatient substance-abuse rehab. Patient was also counseled on the medications and need for regular compliance and was encouraged to follow-up with their outpatient appointment for mental health and also for primary care. Patient to be discharged home alone and will follow-up with [facility]. Mental status exam: General Appearance: Patient appears to be stated age is alert, pleasant, and cooperative. Patient is in no acute distress and has fair hygiene and grooming Behavior: Patient is calmly seated without any agitated behavior. He is confused Speech: Patient's speech is fluent and nonpressured. Mood/Affect: Patient reports their mood is "good", affect is congruent and constricted Suicidality/Homicidality: Patient denies having any suicidal or homicidal ideation intent or plan. Perceptions: Patient denies any auditory or visual hallucinations. Though content/process: There is no evidence of any delusional thought content and thought process is linear and goal-directed. More future oriented Memory and concentration: AOX2-3, not day/date Judgment and insight: Limited given cognitive impairment Impression: Substance-induced mood disorder Alcohol use disorder, severe Rule out Warnicke Korsakoff syndrome Mild cognitive impairment Plan: -Continue with discharge today as patient has improved and stabilized psychiatrically and is not currently an imminent threat to themself and/or others. -Continue medications: Naltrexone 50 mg daily, trazodone 50 mg at bedtime -Patient was counseled on the need for medication compliance and appropriate follow-up at mental health and also primary care for medical issues. Patient verbalized understanding and agreed. -Social work to help coordinate patients discharge today. also to ensure safe home environment that guns/weapons are either removed from the home or locked away. Social work also to arrange for patients follow up appointments with [facility] for psychiatric care along with follow up with primary care provider. -Patient counseled on abstaining from recreational drugs and marijuana and alcohol. Was informed/educated on the adverse effects on their physical and mental health. Patient verbally agreed and understood. Patient was offered substance abuse treatment however declined at this time. -Patient was instructed to return to the hospital or seek immediate medical care if their psychiatric or medical symptoms do worsen or reoccur. Abnormal Labs 03/15/25 03/15/25 03/15/25 08:09 08:09 10:00 RBC 4.12 L Hct 38.4 L MCH 33.0 H POC Glucose (mg/dL) Triglycerides 278.00 H VLDL Cholesterol, Calc 55.60 H HDL Cholesterol 34.30 L U Benzodiazepines Scrn Detected H 03/15/25 17:00 RBC Hct MCH POC Glucose (mg/dL) 114 H Triglycerides VLDL Cholesterol, Calc HDL Cholesterol U Benzodiazepines Scrn Allergies Allergy/AdvReac Type Severity Reaction Status Date / Time No Known Allergies Allergy Verified 03/15/25 10:29 Vital Signs Temp 97.4 F L 03/17/25 08:36 Pulse 98 03/17/25 08:36 Resp 20 03/17/25 08:36 BP 127/83 03/17/25 08:36 Pulse Ox 97 03/17/25 08:36 FiO2 Patient Condition at Discharge: Stable Plan - Discharge Summary Discharge Rx Participant: No New Discharge Prescriptions: New Folic Acid 1 mg PO DAILY 30 Days #30 tab Naltrexone HCl [Revia] 50 mg PO DAILY 30 Days #30 tab traZODone HCL [Desyrel] 50 mg PO HS 30 Days #30 tab Multivitamins, Thera [Multivitamin (formulary)] 1 each PO DAILY 30 Days #30 tab Thiamine [Vitamin B-1] 100 mg PO DAILY 30 Days #30 tab Continue Atorvastatin [Lipitor] 40 mg PO DAILY ALPRAZolam [Xanax] 2 mg PO TID PRN PRN Reason: Anxiety Losartan Potassium 100 mg PO DAILY Discharge Medication List ALPRAZolam [Xanax] 2 mg PO TID PRN 06/29/22 [History] Atorvastatin [Lipitor] 40 mg PO DAILY 06/29/22 [History] Losartan Potassium 100 mg PO DAILY 06/29/22 [History] Folic Acid 1 mg PO DAILY 30 Days #30 tab 03/17/25 [Rx] Multivitamins, Thera [Multivitamin (formulary)] 1 each PO DAILY 30 Days #30 tab 03/17/25 [Rx] Naltrexone HCl [Revia] 50 mg PO DAILY 30 Days #30 tab 03/17/25 [Rx] Thiamine [Vitamin B-1] 100 mg PO DAILY 30 Days #30 tab 03/17/25 [Rx] traZODone HCL [Desyrel] 50 mg PO HS 30 Days #30 tab 03/17/25 [Rx] Follow up Appointment(s)/Referral(s): [facility] [Other] - As Needed (Wilder Casemanager available to assist with any mental health aftercare needs) [facility] [Outside] - 03/23/25 3:30 pm (03/23 @ 15:30-16:00 paperwork please have insurance cards and photo ID 16:00 with Angeline Vargas therapist ) Vazquez See MD [Primary Care Provider] - 1-2 days Patient Instructions/Handouts: Depression (DC), Abuse of Alcohol (DC) Activity/Diet/Wound Care/Special Instructions: [facility] Discharge Info Avoid the use of street drugs and alcohol. Take all medications as prescribed. When you are in need of refills on your medications, please contact your outpatient medical provider and/or outpatient psychiatrist. Please go to your scheduled outpatient appointments for aftercare treatment. If symptoms return or become worse, call the crisis line at or and/or visit the nearest emergency room for assistance. National Suicide and Crisis Lifeline - call or text 200. Discharge/Stand Alone Forms: AA Ariaden Norton Discharge Disposition: HOME SELF-CARE
--- NOTE | 2025-03-17 19:41 | CONS ---
CONSULTATION CHIEF COMPLAINT: Depression and amnesia. HISTORY OF PRESENT ILLNESS: First known admission for this 69-year-old gentleman. He is a patient of the practice and is treated for hypertension and anxiety. When asked how we got to the hospital and why, he states he does not know. He denies any chest pain, headaches, confusion, syncope, generalized or focal neurologic symptoms, incontinence, seizure activity, etc. REVIEW OF SYSTEMS: At the present time, he is not having any difficulty with vision, headache, chest pain, shortness of breath, abdominal pain, etc. Past medical history, family history, personal and social histories reveal that he is on losartan 100 mg once a day, Xanax 2 mg 3 times a day p.r.n., atorvastatin 40 once a day, and vitamin D3. Remainder of his history is unremarkable. He does not smoke, does not drink. PHYSICAL EXAMINATION: VITAL SIGNS: Normal. HEAD, EARS, EYES, NOSE, MOUTH AND THROAT: Normal. CHEST: Clear. CARDIAC: Normal. ABDOMEN: Soft, nontender. EXTREMITIES: Normal. NEUROLOGICAL: He is intact. IMPRESSION: 1. Depression. 2. Hypertension. 3. Amnesia. RECOMMENDATIONS: None. MMODL / IJN: [id number] /
== END 2025-03-17 13:40 | disposition home or self-care (01) | DRG 897 ==
LOC: EC 07:51 → 3MHU 15:04
PROVIDERS: ADMIT Psychiatry & Neurology Psychiatry; ATTEND Psychiatry & Neurology Psychiatry
DX: F19.94 Other psychoactive substance use, unspecified with psychoactive substance-induced mood disorder (principal); F10.20 Alcohol dependence, uncomplicated; R45.851 Suicidal ideations; F32.A Depression, unspecified; I10 Essential (primary) hypertension; F41.9 Anxiety disorder, unspecified; F43.10 Post-traumatic stress disorder, unspecified; R51.9 Headache, unspecified; G31.84 Mild cognitive impairment of uncertain or unknown etiology; G47.00 Insomnia, unspecified; Z79.899 Other long term (current) drug therapy; Z71.41 Alcohol abuse counseling and surveillance of alcoholic
CPT/HCPCS: 36415; 70450; 80053; 80061; 80306; 80320; 81003; 82075; 82607; 83036; 84425; 84443; 84484; 85025; 85610; 85730; 87635; 93005; 96360; 99285